=== PATIENT | female | born 1995 | race Caucasian/White ===

== ENCOUNTER 2021-06-25 13:13 | Outpatient (CLI) | payer OTHER, SELFPAY ==
--- NOTE | ~2021-06-25 | US_ITS ---
EXAMINATION: US OB <= 14 weeks fetus DATE: 06/25/2021 14:31 INDICATION: Threatened , unsure trimester TECHNIQUE: Real-time pelvic transabdominal and transvaginal ultrasound was performed. COMPARISON: None. FINDINGS: The uterus measures 11.8 x 2.7 x 6.6 cm. There is an intrauterine gestational sac. A yolk sac is identified. heart motion is identified measuring 165 beats per minute (bpm) by M-mode Do ppler. The crown rump length measures 1.5 cm , which correlates with an estimated gestational a ge of 8 weeks and 0 day(s) (+/-) 5 day(s). The right ovary measures 3.3 x 1.7 x 2.2 cm. The left ovary measures 1.9 x 1.2 x 1.1 cm. There is nor mal vascular flow in the ovaries. There is no free fluid in the pelvis. IMPRESSION: 1. Live intrauterine with an estimated gestational age of 8 weeks and 0 day(s) (+/-) 5 day( s) and an estimated delivery date of 02/04/2022. Reviewed, dictated and finalized at location A. IMPRESSION: 1. Live intrauterine with an estimated gestational age of 8 weeks and 0 day(s) (+/-) 5 day(s) and an estimated delivery date of 02/04/2022.
== END 2021-06-25 13:14 | disposition home or self-care (01) ==
LOC: ANHIMG 13:22
PROVIDERS: PCP Nurse Practitioner Family; Visit Provider Obstetrics & Gynecology
DX: O02.0 Blighted ovum and nonhydatidiform mole (principal)
CPT/HCPCS: 76801

== ENCOUNTER 2022-01-26 05:06 | Inpatient (IN) | payer OTHER, SELFPAY ==
[2022-01-26] VITALS (98 sets, daily range): BP systolic 83–142; BP diastolic 42–82; PULSE 61–148; RESP 16; TEMP 36.7–37.3; O2SAT 96–100; BMI 42.3
[2022-01-26] MEDS: AMPICILLIN 2 GM/NS 100 ML 2 GM/100 ML BAG 100 GM (05:50)
[2022-01-26] MEDS: LACTATED RINGERS 1,000 ML 125 ML IV CONT ×3 (05:52→08:01)
[2022-01-26] MEDS: AMPICILLIN 2 GM/NS 100 ML 2 GM/100 ML BAG IVPB (05:54)
[2022-01-26 06:02] LABS: Basophils Percent Auto 0.3 % (0.2-1.2); Eosinophils Absolute Auto 0.2 K/mm3 (0-0.3); Eosinophils Percent Auto 1.3 % (0-4.4); Hematocrit 38.9 % (37.0-47.0); Hemoglobin 13.3 g/dL (12.0-15.0); Immature Granulocyte Absolute 0.17 K/mm3 (0.00-0.031); Immature Granulocyte Percent A 1.1 % (0-0.5); Lymphocytes Absolute Auto 2.54 K/mm3 (0.9-3.2); Lymphocytes Percent Auto 15.9 % (18.3-44.2); Mean Corpuscular HGB Conc 34.2 g/dl (32-36); Mean Corpuscular Hemoglobin 30.8 pg (26-34); Mean Platelet Volume 11.4 fl (7.4-10.4); Monocytes Absolute Auto 1.3 K/mm3 (0.1-0.6); Monocytes Percent Auto 8.3 % (2.6-8.5); Neutrophils Absolute Auto 11.7 K/mm3 (1.3-6.7); Neutrophils Percent Auto 73.1 % (45.5-73.1); Platelet Count Result 239 k/mm3 (150-375); Red Blood Count 4.32 M/mm3 (4.2-5.4); Red Cell Distribution Width 14.3 % (11.5-14.5)
--- NOTE | 2022-01-26 06:15 | WPDANESEPP ---
Anes - Eval Pre Procedure Procedure: Labor epidural Date/Time: 01/26/22 06:15 Surgeon: Raghav Pre Op Diagnosis: Labor Patient Data Age: 26 Gender: F Height: Weight: Last Vital Signs Temp 99.1 F 01/26/22 05:25 Pulse 81 01/26/22 06:01 BP 123/60 01/26/22 06:01 Pulse Ox 100 01/26/22 06:14 Allergies Allergy/AdvReac Type Severity Reaction Status Date / Time No Known Allergies Allergy Uncoded 07/12/19 07:54 Home Medications Medication Instructions Recorded Confirmed Type PNV cmb#95-ferrous fumarate-FA 1 tablet PO DAILY 01/13/22 01/13/22 History [] albuterol sulfate [ProAir HFA] 2 puff INHALATION QID PRN 01/13/22 01/13/22 History montelukast 10 mg PO DAILY 01/13/22 01/13/22 History Laboratory Tests 01/26/22 01/26/22 01/26/22 05:49 05:49 05:49 WBC 16.0 K/mm3 H K/mm3 (4.5-10.0) RBC 4.32 M/mm3 M/mm3 (4.2-5.4) Hgb 13.3 g/dL g/dL (12.0-15.0) Hct 38.9 % % (37.0-47.0) MCV 90.0 fl fl (80-100) MCH 30.8 pg pg (26-34) MCHC 34.2 g/dl g/dl (32-36) RDW 14.3 % % (11.5-14.5) Plt Count 239 k/mm3 k/mm3 (150-375) MPV 11.4 fl H fl (7.4-10.4) Immature Gran % (Auto) 1.1 % H % (0-0.5) Neut % (Auto) 73.1 % % (45.5-73.1) Lymph % (Auto) 15.9 % L % (18.3-44.2) [place] % (Auto) 8.3 % % (2.6-8.5) Eos % (Auto) 1.3 % % (0-4.4) Baso % (Auto) 0.3 % % (0.2-1.2) Lymph # (Auto) 2.54 K/mm3 K/mm3 (0.9-3.2) [place] # (Auto) 1.3 K/mm3 H K/mm3 (0.1-0.6) Eos # (Auto) 0.2 K/mm3 K/mm3 (0-0.3) Baso # (Auto) 0.0 K/mm3 K/mm3 (0.0-0.1) Abs Immat Gran (auto) 0.17 K/mm3 H K/mm3 (0.00-0.031) Absolute Neuts (auto) 11.7 K/mm3 H K/mm3 (1.3-6.7) Absolute Nucleated RBC 0.0 K/mm3 K/mm3 (0.0-0.012) Nucleated RBC % 0.0 % % (0.0-0.2) Urine Opiates Screen Pending Urine Methadone Screen Pending Ur Barbiturates Screen Pending Ur Phencyclidine Scrn Pending Ur Amphetamine Screen Pending U Benzodiazepines Scrn Pending Urine Cocaine Screen Pending U Cannabinoids Screen Pending RPR Pending Patient hx anesthesia problems: none Family hx anesthesia problems: none Results Review: All pre-operative results and documents have been reviewed as part of the pre-operative evaluation. [facility] Past Medical History Medical History Asthma Morbid obesity and not yet delivered Family History Family History Father Blood clotting disorder Social History Social History Substance use: never Spiritual care concerns: No Exam Day of Procedure 01/26/22 06:15 Patient weight: morbidly obese Heart: regular rate and rhythm Lungs: clear to auscultation Airway: Mallampati scale class II Neurological: alert and oriented
[2022-01-26 06:20] LABS: Amphetamine Screen Urine Negative (Negative); Barbiturate Screen Urine Negative (Negative); Benzodiazepines Screen Urine Negative (Negative); Cannabinoid Screen Urine Positive (Negative); Cocaine Screen Urine Negative (Negative); Methadone Screen Urine Negative (Negative); Opiate Screen Urine Negative (Negative); Phencyclidine Screen Urine Negative (Negative)
--- NOTE | 2022-01-26 07:49 | LDADM ---
This patient, Linda Vizcarra, was admitted to Labor/Delivery/Recovery 106 on 01/26/22 at 05:06. Plans for labor, pain management and were discussed with patient. Patient/family oriented to hospital policies and general routines including ID bracelet, bed and alarms, visiting hours, pain management, procedures, bathroom and other care routines, personal items, smoking policy, room service/diet and guest tray routines, security routines, and visiting hours. Patient/Family are encouraged to report perceived risks to care and to ask questions if they do not understand what they are told or what they should do. See OBIX for further documentation.
[2022-01-26] MEDS: OXYTOCIN 30 UNITS/NS 500 ML 30 UNITS/500 ML BAG 999 UNITS IV CONT (08:01)
--- NOTE | 2022-01-26 08:09 | WPDOBADMIT ---
Obstetrics - Admit Note Admission Note: record reviewed. No pertinent additions to the history and/or any subsequent changes in the physical findings that are not consistent with the expected course of the were found. PT admitted to LD for SROM ,limited care, +GBS, plan augmentation with pitocin Additions to the history and/or subsequent changes in the physical findings follow. None.
--- NOTE | 2022-01-26 08:21 | PM.OBPNLAB ---
Pain Control Date/time seen: 01/26/22 08:21 SVE /-2, Forebag noted and AROM large amount of meconium flecked fluid, odorless, anticipate vaginal delivery
[2022-01-26] MEDS: fentaNYL CITRATE INJ (*CRX) 100 MCG/2 ML VIAL 50 MCG IV PUSH (08:33)
[2022-01-26] MEDS: AMPICILLIN 1 GM/NS 50 ML 1 GM/50 ML BAG IVPB (09:51)
[2022-01-26] MEDS: ONDANSETRON INJ 4 MG/2 ML VIAL IV PUSH (11:12)
--- NOTE | 2022-01-26 12:14 | P.PCNOB_ITS ---
OB - Delivery Note Procedure Delivery date: 01/26/22 Procedure: vaginal delivery Events: No Care (limited) Delivery augmentation: Rupture of Membranes and Pitocin Delivery monitor: External FHT, External Uterine and Internal FHT Episiotomy description: None Laceration Description: None Specimen: Yes Quantitative Blood Loss (ml): 112 Anesthesia type: Epidural Disposition: Floor [place] Baby Date of : 01/26/22 Time of : 12:01 Weeks of gestation at delivery: 40 Infant gender: Male Weight (pounds): 7 Weight (ounces): 4 presentation: vertex position: Left Occiput Anterior Placenta delivery description: Manual Removal Cord Vessel Description: 3 Vessels, Nuchal Cord, Reduced and Clamped/Cut score one minute: 9 score five minutes: 9 Narrative: baby to warmer, peds at delivery for meconium, mother and baby in stable condition
[2022-01-26] MEDS: OXYTOCIN 30 UNITS/NS 500 ML 30 UNITS/500 ML BAG 125 UNITS IV CONT (12:39)
--- NOTE | 2022-01-26 18:23 | OBPPTRN ---
Patient transferred to post room #282 via wheelchair. Support person present. Oriented to unit, room, information board, rooming in, admission packet and security measures. Patient verbalizes understanding.
[2022-01-26] MEDS: IBUPROFEN 600 MG TABLET PO (23:13)
[2022-01-27] VITALS: BP 119/62; PULSE 65; RESP 16; TEMP 36.9; O2SAT 99
[2022-01-27 04:15] VITALS: BP 112/76; PULSE 62; RESP 16; TEMP 36.6; O2SAT 100
[2022-01-27] MEDS: ACETAMINOPHEN 325 MG TABLET 650 MG PO (04:15)
[2022-01-27 04:33] LABS: Hematocrit 38.4 % (37.0-47.0); Hemoglobin 12.5 g/dL (12.0-15.0)
--- NOTE | 2022-01-27 07:44 | PM.OBPNVD ---
OB - PN: Subj Subjective Date/time seen: 01/27/22 07:44 Patient comments: no complaints, pain well controlled, incisional pain, tolerating diet and flatus present OB - PN: Obj Data Labs CBC & Chem 7: 01/27/22 04:27 Labs: Laboratory Results - last 24 hr 01/26/22 01/27/22 05:49 04:27 Hgb 12.5 Hct 38.4 Blood Type A Positive Antibody Screen Negative OB - PN A/P Plan day: 1 Plan: routine care Comments: No problems, routine care Time Spent With Patient Time: Total time spent is greater than 50% in coordination of care (as documented) at patient's floor/unit and/or counseling patient: Exam Const: General: comfortable, no acute distress and alert Resp: Effort & Inspection: normal respiratory effort Auscultation: no crackles, no rales and no rhonchi Cardio: Rate: regular rate Heart sounds: no click, no murmurs and no rubs GI: Inspection: non-distended GI Palp: No Tenderness to palpation present (GI) Auscultation: normal bowel sounds Other: Incision - CDI Extrem: General: normal to inspection, no pedal edema and no calf tenderness
[2022-01-27 08:00] VITALS: BP 112/61; PULSE 65; RESP 18; TEMP 36.5; O2SAT 100
[2022-01-27] MEDS: MULTIVIT/MIN/PREN/FOL AC/IRON TABLET 1 TAB PO (09:29)
[2022-01-27] MEDS: MONTELUKAST SODIUM 10 MG TABLET PO (09:29)
--- NOTE | 2022-01-27 11:36 | PCCCNOTE ---
Addendum entered by ZHANNA Hendricks 01/27/22 13:22: Recvd email from [facility] that states: Your information has been reviewed and assessed by a Sewing Supervisor. The information you provided met the criteria for a Child Welfare Referral to offer services/provide support to the involved family. ROGELIO naylor. Original Note: Recvd notification that pt. tested positive for THC on UDS. Baby boy's UDS was also positive for THC. Baby's umbilical cord is pending. Possible discharge for both tomorrow. Pt. reports using THC while due to appetite and sleep. Pt. denies any other drug use. Pt. denies prior DCFS involvement. [facility] Report made online #[id number]. Pt. and baby boy will live with CHARITY Martinez, who was at bedside, two daughters (ages 2 and 4), and pt's 17 year old brother who she has had custody of for the past five years. Pt. reports Juan's family is very supportive. Pt. states having all supplies for new baby. Pt. is in process of adding new baby to her WIC and is already established with [employer]. resources provided to pt. ROGELIO naylor.
[2022-01-27 12:15] LABS: Rapid Plasma Reagin Non-Reactive (NonReactive)
--- NOTE | 2022-01-27 14:06 | WPDANLDPN2 ---
Anes-Prog Note L&D Date/Time: 01/27/22 14:06 Comfortable throughout: labor and delivery Neuraxial method: epidural Epidural/Spinal procedure site: clean & non-tender Neuro status: Neuro function grossly intact. Cardiovascular status: normal Respiratory status: normal Airway patency: baseline Mental status: baseline Post-Op hydration status: normal Vital Signs: Last Vital Signs Temp 36.5 C 01/27/22 08:00 Pulse 65 01/27/22 08:00 Resp 18 01/27/22 08:00 BP 112/61 01/27/22 08:00 Pulse Ox 100 01/27/22 08:00 Pain score (VAS): 3 Post-procedural complaints: none Patient feedback: Patient satisfied with anesthetic care.
[2022-01-27] MEDS: IBUPROFEN 600 MG TABLET PO ×2 (16:09→23:56)
[2022-01-27 19:30] VITALS: BP 119/71; PULSE 75; RESP 16; TEMP 36.7; O2SAT 99
[2022-01-28] MEDS: TETANUS,DIPHTHERIA,AC PERTUSSIS ADULT (0.5 ML) BOOSTRIX IM (04:36)
--- NOTE | 2022-01-28 07:39 | PM.OBPNVD ---
OB - PN: Subj Subjective Date/time seen: 01/28/22 07:39 Patient comments: no complaints and pain well controlled baby status: doing well [place] feeding status: exclusively bottle feeding OB - PN: Obj Data Labs CBC & Chem 7: 01/27/22 04:27 Labs: Laboratory Results - last 24 hr 01/26/22 05:49 RPR Non-reactive OB - PN A/P Assessment and Plan (1) , delivered: Code(s): O80 - Encounter for full-term uncomplicated delivery Status: Acute Plan day: 2 Plan: routine care and discharge home Comments: DC instructions given. Time Spent With Patient Time: Total time spent is greater than 50% in coordination of care (as documented) at patient's floor/unit and/or counseling patient: Time with patient: less than 15 minutes Exam Narrative: NAD abdomen soft, nontender, fundus firm below the umbilicus Extremities nontender, 1+ edema
--- NOTE | 2022-01-28 07:42 | PM.DS ---
DS: Admitting Diagnosis Discharge Date 01/28/22 Admitting Diagnosis term labor DS: Discharge Diagnosis Discharge Diagnosis (1) , delivered: Code(s): O80 - Encounter for full-term uncomplicated delivery Status: Acute DS: Summary Hospital Course Hospital Course: Linda had minimal care, presented in labor at term, and had an uncomplicated vaginal delivery and course. Status at Discharge Functional status at discharge: independent ambulation Time Spent with Patient Time attestation: Total time spent providing and/or coordinating discharge services: Exam Narrative: NAD abdomen soft, appropriately tender Ext non tender, 1+ edema DS: Data Data Completed and Pending Pending studies at discharge: Pending at discharge 01/26/22 12:59 Surgical [PTH] Routine Labs on day of discharge: Labs from last 24 hours 01/26/22 05:49 RPR Non-reactive Discharge Plan Discharge Attending physician on discharge: Kalpana Gibbs Discharging Clinician: Kalpana Gibbs Anticipated Discharge Date/Time: 01/28/22 16:00 Patient Disposition: Home, Self-Care Activity: pelvic rest Diet: regular Patient Instructions: Antibiotic Form Stand Alone Forms: General Discharge Information Follow-up/Referrals: Pam Avilez MD [Physician] - 4 Weeks Discharge Medications: Continued montelukast 10 mg Tablet 10 mg PO DAILY RF: 0 albuterol sulfate [ProAir HFA] 90 mcg/actuation Hfa Aerosol Inhaler 2 puff INHALATION QID PRN (Reason: Wheezing) RF: 0 PNV cmb#95-ferrous fumarate-FA [] 28 mg iron- 800 mcg Tablet 1 tablet PO DAILY RF: 0 Date of admission: 01/26/22 05:06 Primary Care Provider: Yvonne,Candis Fitzgerald Admitting Provider: Pam Avilez Attending physician on admission: Pam Avilez Condition: Stable
[2022-01-28 08:05] VITALS: BP 122/74; PULSE 72; RESP 18; TEMP 36.9; O2SAT 100
[2022-01-28] MEDS: MONTELUKAST SODIUM 10 MG TABLET PO (08:37)
[2022-01-28] MEDS: MULTIVIT/MIN/PREN/FOL AC/IRON TABLET 1 TAB PO (08:37)
[2022-01-28] MEDS: IBUPROFEN 600 MG TABLET PO (08:37)
--- NOTE | 2022-01-28 10:05 | PC.NURSE ---
Patient instructed on viewing the discharge video Mother & Baby Care, The First Two Weeks . Patient was given the opportunity and encouraged to ask questions. Patient verbalized understanding of information shared and has been given the mother/baby guide for home reference.
--- NOTE | 2022-01-28 11:21 | PC.NURSE ---
1020 - Mother led the conversation with her experience and plan to feed her so far and her ability to continue to feed infant formula and may breastfeed at home. Mother last put to breast 01/27 at 0400 and states latching hurt her nipples. RN attempted to see patient twice during the shift and patient was not in her room, or in the OB unit. has had adequate formula feedings in the last 24 hours meets the outcomes for weight, output and jaundice at this time. Mother states she is confident to continue feeding her , has other children at home, and denies any additional assistance or education at this time. Reinforced understanding of milk production, community resources, and when to call a provider using the resource of the mom and baby guide. Mother voiced understanding of the education shared. Reported to the primary RN.
[2022-01-29 11:14] VITALS: BP 125/72; PULSE 62; RESP 20; TEMP 36.9; O2SAT 100
== END 2022-01-28 10:45 | disposition home or self-care (01) | DRG 560 ==
LOC: ANHLDR 05:35 → ANHOB2 01-28 07:42 → ANHLDR 01-29 07:54 → ANHOB2 01-29 07:54
PROVIDERS: Advanced Practice Midwife; Admitting Provider Obstetrics & Gynecology; PCP Nurse Practitioner Family; Visit Provider Obstetrics & Gynecology
DX: O99.824 Streptococcus B carrier state complicating childbirth (principal); Z37.0 Single live birth; Z3A.40 40 weeks gestation of pregnancy; O77.0 Labor and delivery complicated by meconium in amniotic fluid; O69.81X0 Labor and delivery complicated by cord around neck, without compression, not applicable or unspecified
CPT/HCPCS: 36415; 80307; 84112; 85014; 85018; 85025; 86592; 86850; 86900; 86901; 88307; 90715; A9270; J0290; J2405; J2590; J2795; J3010; J7120

== ENCOUNTER 2024-09-30 12:14 | Outpatient (RCR) | payer BC, SELFPAY ==
[2024-09-07 16:34] VITALS: BP 111/60; PULSE 99
--- NOTE | ~2024-09-30 | US_ITS ---
LIMITED OBSTETRIC ULTRASOUND/BIOPHYSICAL PROFILE Ordering provider: Rhoda Deng CNM History: . Elevated BMI . Comparison: None. FINDINGS: MATERNAL CERVIX: Not visualized. PRESENTATION: Vertex. Longitudinal lie PLACENTAL LOCATION: Anterior. No previa. HEART RATE: 123 bpm (normal is between 110 to 160 bpm). AMNIOTIC FLUID INDEX: Largest vertical pocket is 7.9 cm. OTHER: Maternal ovaries not visualized. SCORE: breathing movements: 2 movements: 2 tone: 2 Amniotic fluid volume: 2 Total: 8 IMPRESSION: Normal biophysical profile. Reviewed, dictated and finalized at location A. TY SEALER IMPRESSION: Normal biophysical profile.
[2024-09-30 13:27] VITALS: BP 116/64; PULSE 82
== END 2024-10-22 16:13 | disposition home or self-care (01) ==
LOC: ANHOBOP 12:14
PROVIDERS: PCP Nurse Practitioner Family; Visit Provider Advanced Practice Midwife
DX: O99.213 Obesity complicating pregnancy, third trimester (principal); Z3A.34 34 weeks gestation of pregnancy
CPT/HCPCS: 59025; 76819

== ENCOUNTER 2024-10-07 05:05 | Inpatient (IN) | payer BC, SELFPAY ==
[2024-10-07] VITALS (116 sets, daily range): BP systolic 77–137; BP diastolic 39–90; PULSE 63–201; RESP 16–18; TEMP 36.1–36.8; O2SAT 95–100
[2024-10-07 05:44] LABS: Basophils Percent Auto 0.3 % (0.2-1.2); Eosinophils Absolute Auto 0.1 K/mm3 (0-0.3); Eosinophils Percent Auto 0.9 % (0-4.4); Hematocrit 37.3 % (37.0-47.0); Hemoglobin 12.9 g/dL (12.0-15.0); Immature Granulocyte Absolute 0.12 K/mm3 (0.00-0.031); Mean Corpuscular HGB Conc 34.6 g/dl (32-36); Mean Corpuscular Hemoglobin 32.8 pg (26-34); Mean Corpuscular Volume 94.9 fl (80-100); Mean Platelet Volume 10.6 fl (7.4-10.4); Monocytes Absolute Auto 0.7 K/mm3 (0.1-0.6); Neutrophils Absolute Auto 8.2 K/mm3 (1.3-6.7); Neutrophils Percent Auto 67.8 % (45.5-73.1); Platelet Count Result 320 k/mm3 (150-375); Red Blood Count 3.93 M/mm3 (4.2-5.4); Red Cell Distribution Width 15.5 % (11.5-14.5); White Blood Count 12.1 K/mm3 (4.5-10.0)
[2024-10-07] MEDS: OXYTOCIN 30 UNITS/NS 500 ML 30 UNITS/500 ML BAG IV CONT (06:00)
[2024-10-07] MEDS: AMPICILLIN 2 GM/NS 100 ML 2 GM/100 ML BAG IVPB (06:00)
[2024-10-07] MEDS: LACTATED RINGERS 1,000 ML 125 ML IV CONT ×2 (06:02→07:29)
[2024-10-07 06:33] LABS: Rapid Plasma Reagin Non-Reactive (NonReactive)
[2024-10-07 06:37] LABS: HIV 1/2 Ab P24 Ag Result Negative (Negative)
--- NOTE | 2024-10-07 06:45 | P.PNAN_ITS ---
Anes - Eval Pre Procedure Procedure: labor epidural Date/Time: 10/07/24 06:45 Surgeon: sonam Preop Diagnosis: pain during labor Pre Op Diagnosis: IOL Patient Data Age: 29 Gender: F Height: Weight: Last Vital Signs Pulse 75 10/07/24 06:30 BP 115/65 10/07/24 06:30 Allergies Allergy/AdvReac Type Severity Reaction Status Date / Time No Known Allergies Allergy Verified 09/23/24 15:19 Home Medications ?Medication ?Instructions ?Recorded ?Confirmed ?Type albuterol sulfate 90 mcg/actuation 2 puff inhalation QID PRN Wheezing 01/13/22 09/23/24 History aerosol inhaler (ProAir HFA) vit no.95-ferrous 1 tablet PO DAILY 01/13/22 09/23/24 History fumarate 28 mg-folic acid 800 mcg tablet () Laboratory Tests 10/07/24 05:38 WBC 12.1 H K/mm3 (4.5-10.0) RBC 3.93 L M/mm3 (4.2-5.4) Hgb 12.9 g/dL (12.0-15.0) Hct 37.3 % (37.0-47.0) MCV 94.9 fl (80-100) MCH 32.8 pg (26-34) MCHC 34.6 g/dl (32-36) RDW 15.5 H % (11.5-14.5) Plt Count 320 k/mm3 (150-375) MPV 10.6 H fl (7.4-10.4) Immature Gran % (Auto) 1.0 H % (0-0.5) Neut % (Auto) 67.8 % (45.5-73.1) Lymph % (Auto) 24.0 % (18.3-44.2) [place] % (Auto) 6.0 % (2.6-8.5) Eos % (Auto) 0.9 % (0-4.4) Baso % (Auto) 0.3 % (0.2-1.2) Lymph # (Auto) 2.90 K/mm3 (0.9-3.2) [place] # (Auto) 0.7 H K/mm3 (0.1-0.6) Eos # (Auto) 0.1 K/mm3 (0-0.3) Baso # (Auto) 0.0 K/mm3 (0.0-0.1) Abs Immat Gran (auto) 0.12 H K/mm3 (0.00-0.031) Absolute Neuts (auto) 8.2 H K/mm3 (1.3-6.7) Absolute Nucleated RBC 0.000 K/mm3 (0.0-0.012) Nucleated RBC % 0.0 % (0.0-0.2) RPR Non-reactive (NonReactive) HIV 1&2 Ab/P24 Ag 4thGn Negative (Negative) Blood Type A Positive Antibody Screen Negative Patient hx anesthesia problems: none Family hx anesthesia problems: none Results Review: All pre-operative results and documents have been reviewed as part of the pre- operative evaluation. [facility] Past Medical History Medical History Asthma Morbid obesity and not yet delivered Family History Family History Father Blood clotting disorder Social History Social History Years smoked: 10 Smoking status: Current every day smoker Tobacco type: cigarettes Second hand tobacco smoke exposure: No Substance use: never Spiritual care concerns: No Exam Day of Procedure 10/07/24 06:45
--- NOTE | 2024-10-07 07:52 | WPDOBADMIT ---
Obstetrics - Admit Note Admission Note: record reviewed. No pertinent additions to the history and/or any subsequent changes in the physical findings that are not consistent with the expected course of the were found. Additions to the history and/or subsequent changes in the physical findings follow. admit for IOL, polyhydramnios, SVE /-2 arom large amount of clear, odorless fluid, anticipate vaginal delivery
[2024-10-07] MEDS: AMPICILLIN 1 GM/NS 50 ML 1 GM/50 ML BAG IVPB (10:06)
--- NOTE | 2024-10-07 12:30 | PM.OBPRVD ---
OB - Vaginal Delivery Note Procedure Delivery date: 10/07/24 Events: Other (polyhydramnios) Intrapartal Events: Decelerations Induction method: AROM and Per Pitocin Protocol Delivery monitor: External FHT and External Uterine Route of delivery: Episiotomy description: None Laceration Description: None Specimen: No Quantitative Blood Loss (ml): 100 Anesthesia type: Epidural Disposition: Floor Complications: No immediate complications Baby Date of : 10/07/24 Time of : 12:20 Gestational Age by Date: 39 gender: Female presentation: vertex position: Right Occiput Anterior Placenta delivery description: Spontaneous Cord Vessel Description: 3 Vessels, Clamped/Cut and Delayed Cord Clamping score one minute: 8 score five minutes: 9
[2024-10-07] MEDS: OXYTOCIN 30 UNITS/NS 500 ML 30 UNITS/500 ML BAG 125 UNITS IV CONT (13:01)
[2024-10-08] MEDS: ACETAMINOPHEN 325 MG TABLET 650 MG PO
[2024-10-08 04:00] VITALS: BP 132/85; PULSE 88; RESP 18; TEMP 36.6; O2SAT 99
[2024-10-08] MEDS: IBUPROFEN 600 MG TABLET PO (04:10)
[2024-10-08 04:49] LABS: Hematocrit 38.1 % (37.0-47.0); Hemoglobin 12.5 g/dL (12.0-15.0)
--- NOTE | 2024-10-08 06:50 | WPDANLDPN2 ---
Anes-Prog Note L&D Date/Time: 10/08/24 06:50 Comfortable throughout: labor and delivery Neuraxial method: epidural Epidural/Spinal procedure site: clean & non-tender Neuro status: Neuro function grossly intact. Cardiovascular status: normal Respiratory status: normal Airway patency: baseline Mental status: baseline Post-Op hydration status: normal Vital Signs: Last Vital Signs Temp 36.6 C 10/08/24 04:00 Pulse 88 10/08/24 04:00 Resp 18 10/08/24 04:00 BP 132/85 10/08/24 04:00 Pulse Ox 99 10/08/24 04:00 O2 Del Method Room Air 10/07/24 19:40 Pain score (VAS): 1 Post-procedural complaints: none Patient feedback: Patient satisfied with anesthetic care.
--- NOTE | 2024-10-08 07:15 | PM.OBPRVD ---
OB - Vaginal Delivery Note Procedure Delivery date: 10/08/24 Events: Other (polyhydramnios) Intrapartal Events: Decelerations Laceration Description: None Anesthesia type: Epidural Baby Date of : 10/07/24 Time of : 12:20 Gestational Age by Date: 39 Infant gender: Female presentation: vertex position: Right Occiput Anterior Placenta delivery description: Spontaneous Cord Vessel Description: 3 Vessels, Clamped/Cut and Delayed Cord Clamping score one minute: 8 score five minutes: 9
--- NOTE | 2024-10-08 07:16 | PM.OBDSVD ---
DS: Admitting Diagnosis Discharge Date October 08, 2020 Admitting Diagnosis term DS: Discharge Diagnosis Discharge Diagnosis (1) , delivered: Code(s): O80 - Encounter for full-term uncomplicated delivery Status: Acute OB - DS: Summary OB Procedures : None OB Procedures Intrapartum: Spontaneous Vag Delivery OB Procedures: : None Peripartum Data Laceration Description: None Episiotomy description: None Time Spent with Patient Time attestation: Total time spent providing and/or coordinating discharge services: DS: Data Data Completed and Pending Labs on day of discharge: Labs from last 24 hours 10/08/24 03:55 Hgb 12.5 Hct 38.1 Discharge Plan Discharge Consulting providers: Cole Avilez Discharging Clinician: Cole Avilez Activity: pelvic rest Diet: regular Patient Language: [place] Discharge Medications: No Action albuterol sulfate [ProAir HFA] 90 mcg/actuation Hfa Aerosol Inhaler 2 puff INHALATION QID PRN (Reason: Wheezing) PNV cmb#95-ferrous fumarate-FA [] 28 mg iron- 800 mcg Tablet 1 tablet PO DAILY Date of admission: 10/07/24 05:05 Primary Care Provider: Diane,Candis Fitzgerald Admitting Provider: Cole Avilez Attending physician on admission: Rhoda Deng
[2024-10-08 08:15] VITALS: BP 102/71; PULSE 68; RESP 16; TEMP 36.2
--- OUTSIDE RECORDS SUMMARY | 2024-10-14 10:22 | XMS_ITS | Encounter Summary ---
Author Organization [facility] Address [address] [place] [address] Phone Care Team Providers Care Pulling Unit Operator Name Role Phone Cole Avilez MD Unavailable [phone] No, Physician Primary Care Provider [phone] Reason for Visit * OBGYN (Routine) - Closed Specialty Diagnoses / Procedures Referred By Contac t Referred To Contact Maternal and Medicine Diagnoses COM U/S PRIOR Procedures OB CO-MANAGED [facility] Obstetrics and Gynecology [address] [place] [address] Health 7th Floor [address] [place] [address] Phone: tel: fax: [facility] Physicians [facility] Obstetrics and Gynecology [address] [place] [address] [address], [place] [address] Phone: tel: fax: Referral ID Status Reason Start Date Expiration Date Visits Re quested Visits Authorized [id number] Closed 06/03/2019 12/12/2020 1 1 Encounter Details Date Type Department Care Team (Late st Contact Info) Description 06/03/2019 12:15 PM CDT Office Visit [facility] Physicians [facility] Obstetrics and Gynecology [address] [facility] [address] [place] [address] Jose Antonio Rasheed MD [address] [place] [phone] [place] [address] Poor growth affecting management of mother in third trimester, single or unspecified fetus (Primary Dx) Social History Tobacco Use Types Packs/Day Years Used Date Smoking Tobacco: Heavy Smoker Cigarettes 0.5 6 Smokeless Tobacco: Never Comments:Smoking History Pac ks/day: 7 Cigarettes Alcohol Use Standard Drinks/Week Comments No 0 (1 standard drink = 0.6 oz pur e alcohol) Comments Yes Sex and Gender Information Value Date Recorded Sex Assigned at Not on file Legal Sex Female 1:52 PM CDT Gender Identity Not on file Sexual Orientation Not on file documented as of this encounter Last Filed Vital Signs Vital Sign Reading Time Taken Comments Blood Pressure 120/70 06/03/2019 11:26 AM CDT Pulse - - Temperature - - Respiratory Rate - - Oxygen Saturation - - Inhaled Oxygen Concentration - - Weight 91.3 kg (201 lb 4.5 oz) 06/03/2019 11:26 AM CDT Height 157.5 cm (5' 2 ) 06/03/2019 11:26 AM CDT Body Mass Index 36.81 06/03/2019 11:26 AM CDT documented in this encounter Progress Notes * Jose Antonio Rasheed MD - 06/03/2019 12:15 PM CDT Maternal- Medicine Consultation Dear Dr. Avilez, I had the pleasure of seeing your patient, Linda Vizcarra, [facility] at [place], [place] on 06/03/2019. As you are aware, Linda is a 23 y.o. currently at 31w1d weeks gestation whose is complicated by suspected intrauterine growth restriction. Today, Linda denies any acute medical or obstetrical complaints. She denies any contractions, vaginal bleeding, and leakage of fluid. She reports good movement. For information on her medical histories, please refer to previous consultation letters. During today's consultation, Linda underwent a growth ultrasonographic examination that demonstrated a viable fetus to be in cephalic presentation with an estimated weight at the 52nd percentile. BPP 05/19. Umbilical artery Doppler velocimetry demonstrated a normal PI. The amniotic fluid volume was normal. These findings were reviewed in extensive detail with Linda today. Given that Linda has not had 2subsequent normal growth ultrasounds since her ultrasound of growth restriction was performed, I have recommended that she continue the surveillance twice weekly in your ofice. I would liketo see Linda in return consultation with a repeat growth ultrasonographic examination in 3-4 weeks' time. If, at that time, the growth is again in the normal range, testing can then be discontinued. The patient verbalized understanding and is in agreement. In the interim, Linda should continue her routine care with you. Should you have any further questions or concerns, please do not hesitate to call me. I have spent 30 minutes of clinical time for this patient, with > 50% of the time being devoted to history taking, counseling and coordination of care. Sincerely, Jose Antonio Rasheed MD, FACOG Upper Inspector Division of Maternal- Medicine Department of Obstetrics and Gynecology [facility] documented in this encounter Plan of Treatment Not on file documented as of this encounter Visit Diagnoses Diagnosis Poor growth affecting management of mother in third trimester, single or unspecified fetus- Primary documented in this encounter Care Teams Pulling Unit Operator Relationship Specialty Start Date End Date No, Physician PCP - General 06/03/19 Cole Avilez MD [address] [place] [address] Referring Physician Obstetrics and Gynecology 04/19/19 documented as of this encounter
--- OUTSIDE RECORDS SUMMARY | 2024-10-14 10:22 | XMS_ITS | Clinical Summary ---
Author Organization [facility] Address [address] [place] [address] Care Team Providers Care Auto Glass Installer Name Role Phone Cole Avilez MD Unavailable [phone] No, Physician Primary Care Provider [phone] Allergies No known active allergies Medications no.75-rkbm-GX-d adams (OUTREACH CLINICIAN-PNV-DHA) 28 mg iron- 1 mg-200 mg capsule take 1 capsule by oral route every day 30 11 7 Active cholecalciferol (VITAMIN D3) 5,000 unit tablet take 1 tablet by oral route every day 30 5 7 Active Additional Information Patient not taking.Reported on 09/23/2017 norgestimate-et hinyl estradiol (MONONESSA, 28,) 0.25-35 mg-mcg per tablet Take 1 tablet by mouth daily. 28 tablet 12 7 Active VENTOLIN HFA 90 mcg/actuation inhaler INHALE 2 PUFFS BY MOUTH EVERY 6 HOURS NEEDED FOR WHEEZING 18 g 8 Active Active Problems Problem Noted Date Diagnosed Date Asthma affecting in second trimester 0 04/15/2019 Overview (04/15/2019): Patient is doing well. She has a MDI and denies recent exacerbation. Supervision of high-risk , unspecified trimester 03/30/2019 Overview (03/30/2019): Co-management vs. [] Full MFM Care Referring Provider: Raghav [x] Dating Criteria: LMP [x] Labs: Rh [ A+ ], Ab [ neg ], Rubella [ imm ], HIV [ neg ], HepBSAg [ neg ], RPR [ NR ] [x] Genetic Screening: quad screen negative [] Hgb electrophoresis (if indicated) [x] CBC: 12.9/39.3/plt 247 [x] GC/CT/trich: neg/neg/neg [] UCx: [x] Pap: 02/09/19 WNL [] PNBHS referral (if indicated) 2nd Tri Labs: [] Anatomy ultrasound [] CBC [] 1hr gtt [] Flu Shot (Jun-Sep) [] Tdap (27-36wks) [] Rhogam (if Rh neg): 3rd Tri Labs: [] CBC/HIV/RPR [] GBS [] GC/CT (if indicated) Counselling [] MOD: [] MOC: [] Method of feeding: [] PP Depression Discussed Poor growth affecting management of mother in third trimester 03/30/2019 Overview (06/03/2019): EFW at 28th percentile if ROSI of 08/04 is used determined by 15 US. LMP of 10/26/18 is uncertain ( patient reports she guessed the date). 04/11: 28th percentile 05/02: 7th percentile 06/03: 52nd percentile Drug abuse during ([facility]) 03/30/2019 Overview (03/30/2019): UDS positive for THC per primary OB Resolved Problems Problem Noted Date Diagnosed Date Resolved Date GBS (group B Streptococcus c arrier), +RV culture, currently 07/12/2017 03/30/2019 Immunizations Name Administration Dates Next Due Tdap 05/15/2017 Medical History Medical History Date Comments Airway hyperreactivity Asthma; C omments: JRB 12/12/2016 - Hx Other Medical stomach, bowel, or gallbladder; Comments: JRB 12/12/2016 - Family History Medical History Relation Name Comments Asthma Father Asthma; Blood Clot Father blood clots; Thyroid disease Father Thyroid dise ase; Diabetes Maternal Grandmother Diabete s mellitus; Cervical cancer Paternal Grandmother Canc er, cervical; Other Paternal Grandmother breast problems; Relation Name Status Comments Father Maternal Grandmother Paternal Grandmother Social History Tobacco Use Types Packs/Day Years Used Date Smoking Tobacco: Heavy Smoker Cigarettes 0.5 6 Smokeless Tobacco: Never Comments:Smoking History Pac ks/day: 7 Cigarettes Alcohol Use Standard Drinks/Week Comments No 0 (1 standard drink = 0.6 oz pur e alcohol) Personal Safety Answer Date Recorded Getting School Help Needed Not on file 12/26 Comments No Sex and Gender Information Value Date Recorded Sex Assigned at Not on file Legal Sex Female 1:52 PM CDT Gender Identity Not on file Sexual Orientation Not on file Obstetrics History Para Term AB IAB SAB Ectopic Multiple Livin g Live Births 2 1 1 1 1 Date Outcome GA Total Labor Labor/2nd/3rd Weight Sex Type Anes PTL Jackie A1 A5 Name Clin 07/13 Term 39w 1d 2.466 kg (5 lb 7 oz) F Vag-S pont Epidura l Living Last Filed Vital Signs Vital Sign Reading [...] Mass Index 36.81 06/03/2019 11:26 AM CDT Plan of Treatment Not on file Insurance Care Teams Auto Glass Installer Relationship Specialty Start Date End Date No, Physician PCP - General 06/03/19 Cole Avilez MD [address] [place] [address] Referring Physician Obstetrics and Gynecology 04/19/19
--- OUTSIDE RECORDS SUMMARY | 2024-10-14 10:22 | XMS_ITS | Referral Summary ---
Author Organization [facility] Address [address] [place] [address] Care Team Providers Care Pattern Hanger Name Role Phone Cole Avilez MD Unavailable [phone], Physician Primary Care Provider [phone] Allergies No known active allergies Medications no.36-hxgu-OB-d adams (MIXOLOGIST-PNV-DHA) 28 mg iron- 1 mg-200 mg capsule [...] 52nd percentile Drug abuse during (CMS/[facility]) 03/30/2019 Overview (03/30/2019): UDS positive for THC per primary OB Resolved Problems Problem Noted Date Diagnosed Date Resolved Date GBS (group B Streptococcus c arrier), +RV culture, currently 07/12/2017 03/30/2019 Immunizations Name Administration Dates Next Due Tdap 05/15/2017 Social History Tobacco Use Types Packs/Day Years [...] on file Sexual Orientation Not on file Last Filed Vital Signs Vital Sign Reading [...] Plan of Treatment Not on file Insurance [facility] Care Teams Pattern Hanger Relationship Specialty Start Date End Date No, Physician PCP - General 06/03/19 Cole Avilez MD [address] [place] [address] Referring Physician Obstetrics and Gynecology 04/19/19
--- OUTSIDE RECORDS SUMMARY | 2024-10-14 10:22 | XMS_ITS | Encounter Summary ---
Author Organization [facility] Address [address] [place] [address] Phone Care Team Providers Care Bench Grinder Name Role Phone Cole Avilez MD Unavailable [phone] No, Physician Primary Care Provider [phone] Reason for Visit * Diagnostic Imaging (Routine) - Closed Specialty Diagnoses / Procedures Referred By Contac t Referred To Contact Diagnoses Encounter for ultrasound to assess growth Procedures US OB Follow Up Cole Avilez MD Phone: tel: fax: [facility] (All Locations) Referral ID Status Reason Start Date Expiration Date Visits Re quested Visits Authorized [id number] Closed 05/04/2019 11/12/2020 1 1 Encounter Details Date Type Department Care Team (Latest Contact Info) Description 06/03/2019 11:15 AM CDT Ancillary Procedure [facility] Obstetrics and Gynecology [address] [place] [address] [place] [address] Encounter for ultrasound to assess growth Social History Tobacco Use Types Packs/Day Years [...] on file documented as of this encounter Plan of Treatment Not on file documented as of this encounter Procedures Procedure Name Priority Date/Time Associated Diagnosis Comments US OB FOLLOW UP Schedule Routine, Read Routine (OP Routine) 06/03/2019 11:23 AM CDT Encounter for ultrasound to assess growth documented in this encounter Results * US OB Follow Up (06/03/2019 11:23 AM CDT) Placenta Details posterior, Previa-no, no placental masses VIEWPOINT Estimated Weight 1,794 g&grams VIEWPOINT Presentation Vertex VIEWPOINT Fetus# Fetus1 VIEWPOINT Anatomical Region Laterality Modality Abdomen N/A Ultrasound 06/03/2019 11:3 4 AM CDT us Cole Avilez MD IMG OB US PROCEDURES Final Re sult documented in this encounter Visit Diagnoses Diagnosis Encounter for ultrasound to assess growth documented in this encounter Care Teams Bench Grinder Relationship Specialty Start Date End Date No, Physician PCP - General 06/03/19 Cole Avilez MD [address] [place] [address] Referring Physician Obstetrics and Gynecology 04/19/19 documented as of this encounter
--- OUTSIDE RECORDS SUMMARY | 2024-10-14 10:23 | XMS_ITS | Encounter Summary ---
Author Organization [facility] Address [address] [place] [address] Phone Care Team Providers Care Machine Chocolate Molder Name Role Phone No, Physician Primary Care Provider [phone] Reason for Visit * Consultation (Routine) - Closed Specialty Diagnoses / Procedures Referred By Contac t Referred To Contact Maternal and Medicine Diagnoses affected by growth restriction Cole Avilez MD Phone: tel: fax: [facility] (All Locations) Referral ID Status Reason Start Date Expiration Date V isits Requested Visits Authorized [id number] Closed Specialty Services Required 03/25/2019 10/03/2020 1 1 Encounter Details Date Type Department Care Team (Late st Contact Info) Description 04/11/2019 1:00 PM CDT Office Visit [facility] Physicians [facility] Obstetrics and Gynecology [address] [place] [address] Ricarda Beverly MD [address] [facility] [phone] [place] [address] affected by growth restriction Social History Tobacco Use Types Packs/Day Years [...] on file documented as of this encounter Progress Notes * Ricarda Beverly MD - 04/11/2019 1:00 PM CDT Maternal Medicine Consult Note Reason for Consult: Suspected IUGR Requesting Provider: Cole Avilez MD Dear Dr. Avilez, We had the pleasure of seeing your patient Linad Vizcarra in our office today. As you know, she berta 23 y.o. at 23w6d who presents for consultation secondary to suspected IUGR. I have reviewed how Ms Gomez's ROSI was derived and she tells me that her LMP is uncertain and that she guessed at the date. I have reviewed her earliest US and have decided to re-date her based on the information obtained today. While the ROSI only changed 2 days it is the most accurate. Today she is doing well, she reports movement normal, no bleeding, no contractions and no leaking. Patient Active Problem List Diagnosis Code ??? Supervision of high-risk , unspecified trimester O09.90 ??? Poor growth affecting management of mother in second trimester O36.5920 ??? Drug abuse during ([facility]) O99.320, F19.10 Past Medical History: Diagnosis Date ??? Airway hyperreactivity Asthma; Comments: OLEGARIO 12/12/2016 - ??? HX OTHER MEDICAL stomach, bowel, or gallbladder; Comments: OLEGARIO 12/12/2016 - No past surgical history on file. Past Gynecologic History: Patient's last menstrual period was 10/26/2018. but she reports she guess the date. Menses: regular, Prior STIs: none. Her last pap smear was normal. Prior control methods: nothing. She has no history of infertility, ART treatment, gynecologic surgery, or breast cancer. She has no history of blood transfusions. OB History Para Term AB Living 2 1 1 1 SAB TAB Ectopic Multiple Live Births 1 # Outcome Date GA Lbr Anselmo/2nd Weight Sex Delivery Anes PTL Lv 2 Current 1 Term 07/13/17 39w1d 2.466 kg (5 lb 7 oz) F Vag-Spont EPI HERBERT Medications: Scheduled Meds: Continuous Infusions: No current facility-administered medications for this visit. PRN Meds:. Family History: Family History Problem Relation Age of Onset ??? Asthma Father Asthma; ??? Thyroid disease Father Thyroid disease; ??? Blood Clot Father blood clots; ??? Diabetes Maternal Grandmother Diabetes mellitus; ??? Cervical cancer Paternal Grandmother Cancer, cervical; ??? Other Paternal Grandmother breast problems; Specifically, she denies a family history of defects including spina bifida, congenital heartdefects, limb defects, or kidney defects. She denies a family history of genetic abnormalities including Down Syndrome, cognitive delays, or learning disabilities including autism spectrum disorders.She denies a family history of inherited disorders including cystic fibrosis, thalassemia, sickle cell disease, or muscular dystrophy. No Known Allergies Social History Socioeconomic History ??? Marital status: Unknown Spouse name: Not on file ??? Number of children: Not on file ??? Years of education: Not on file ??? Highest education level: Not on file Tobacco Use ??? Smoking status: Heavy Tobacco Smoker Packs/day: 0.50 Years: 6.00 Pack years: 3.00 ??? Smokeless tobacco: Never Used ??? Tobacco comment: Smoking History Packs/day: 7 Cigarettes Substance and Sexual Activity ??? Alcohol use: No ??? Drug use: No ??? Sexual activity: Yes Dating: Patient's last menstrual period was 10/26/2018. uncertain > ROSI 08/02/19 2nd trimester ultrasound 15 weeks > ROSI 08/04/19 Review of Systems Review of systems per HPI and otherwise all systems are negative Physical Exam Vitals LMP 10/26/2018 General: Healthy, alert, active, cooperative, and in no distress The rest of the exam is deferred secondary to the consultative nature of this visit. Heart Rate: wnl Labs: Laboratory Results dated 02/10/19 Blood type: A+ Antibody screen: Negative GCCT: Negative HCT: 39.3 Platelets: 247 Rubella: Immune RPR: Negative HBsAg: Negative HIV: Negative Pap: normal Aneuploidy screening: Not reviewed SMA/CF screening: not reviewed Outside Imaging: Ultrasound: Second/third trimester findings: EFW at 5th% by ROSI of 08/02/19 Ultrasound at our [facility]: Ultrasound 04/11/2019: 23w6d EFW 577 grams (28th%), breech presentation, [place] wnl, placenta posterior,fundal Assessment: Ms. Linda Vizcarra is a kasie 23 y.o. at 23w6d here today for a consult regarding the followin. Suspected IUGR. After reviewed the dating by LMP and patient's uncertainty of the date I have reassigned her ROSI based on the 15 week US despite there only being a 2 day difference. The EFW obtained today is not concerning but I would like to repeat the US in 3 weeks to ensure the biometry continues to plot at or above the 10th percentile. 2. Asthma Asthma may worsen, improve, or stay the same during , and that management is similar in women compared to non- women. Pulmonary symptoms in the third trimester may be difficult to distinguish between asthma exacerbation and dyspnea of . Optimal control prior to is recommended, and Ms. Gomez's reports rare inhaler use at this time. Typically, well-controlled asthma will not impact outcomes. GERD can exacerbate asthma in and control of these symptoms are important. Thank you for involving the Maternal- Medicine practice in the care of this kasie patient. Inthe interim, Ms. Vizcarra should continue her routine care with you. We would like to see Ms. Vizcarra again in approximately 3 weeks' time. Should you have any further questions or concerns, please do not hesitate to contact our office. I have spent 30 minutes of clinical time for this patient, with > 50% of the time being devoted to history taking, counseling and coordination of care. Ricarda Beverly MD Russet Repairer Division of Maternal Medicine documented in this encounter Plan of Treatment Not on file documented as of this encounter Visit Diagnoses Diagnosis affected by growth restriction documented in this encounter Orders Outpatient Referral Count Last Ordered Date Fir st Ordered Date AMB REFERRAL TO MATERNAL AND MEDICINE 1 04/11/2019 documented in this encounter Care Teams Machine Chocolate Molder Relationship Specialty Start Date End Date No, Physician PCP - General 07/10/17 06/02/19 documented as of this encounter
--- OUTSIDE RECORDS SUMMARY | 2024-10-14 10:23 | XMS_ITS | Encounter Summary ---
Author Organization [facility] Address [address] [place] [address] Phone Care Team Providers Care Chisel Grinder Name Role Phone No, Physician Primary Care Provider [phone] Reason for Visit * Diagnostic Imaging (Routine) - Closed Specialty Diagnoses / Procedures Referred By Contac t Referred To Contact Diagnoses affected by growth restriction Procedures US OB Detail Anatomy Single Or First Gestation Cole Avilez MD Phone: tel: fax: [facility] (All Locations) Referral ID Status Reason Start Date Expiration Date Visits Re quested Visits Authorized [id number] Closed 03/25/2019 10/03/2020 1 1 Encounter Details Date Type Department Care Team (Latest Contact Info) Description 04/11/2019 11:00 AM CDT Ancillary Procedure [facility] Obstetrics and Gynecology [address] [place] [phone] affected by growth restriction Social History Tobacco [...] Priority Date/Time Associated Diagnosis Comments US OB DETAIL ANATOMY SINGLE OR FIRST GESTATION Schedule Routine, Read Routine (OP Routine) 04/11/2019 11:12 AM CDT affected by growth restriction documented in this encounter Results * US OB Detail Anatomy Single Or First Gestation (04/11/2019 11:12 AM CDT) Placenta Details posterior, fundal, Previa-no, no placental masses VIEWPOINT Estimated Weight 577 g&grams VIEWPOINT Presentation Breech VIEWPOINT Fetus# Fetus1 VIEWPOINT Anatomical Region Laterality Modality Body N/A Ultrasound 04/11/2019 12:1 4 PM CDT us Cole Avilez MD IMG OB US PROCEDURES Final Re sult documented in this encounter Visit Diagnoses Diagnosis affected by growth restriction documented in this encounter Care Teams Chisel Grinder Relationship Specialty Start Date End Date No, Physician PCP - General 07/10/17 06/02/19 documented as of this encounter
--- OUTSIDE RECORDS SUMMARY | 2024-10-14 10:23 | XMS_ITS | Encounter Summary ---
Author Organization [facility] Address [address] [place] [address] Phone Care Team Providers Care Mechanical Applications Engineer Name Role Phone No, Physician Primary Care Provider [phone] Cole Avilez MD Unavailable [phone] Reason for Visit * Diagnostic Imaging (Routine) - Closed Specialty Diagnoses / Procedures Referred By Contac t Referred To Contact Diagnoses Encounter for ultrasound to assess growth Procedures US OB Follow Up Cole Avilez MD Phone: tel: fax: [facility] (All Locations) Referral ID Status Reason Start Date Expiration Date Visits Re quested Visits Authorized [id number] Closed 04/13/2019 10/22/2020 1 1 Encounter Details Date Type Department Care Team (Latest Contact Info) Description 05/02/2019 2:00 PM CDT Ancillary Procedure [facility] Obstetrics and Gynecology [address] [place] [address] Encounter for ultrasound to assess growth Social [...] UP Schedule Routine, Read Routine (OP Routine) 05/02/2019 2:12 PM CDT Encounter for ultrasound to assess growth documented in this encounter Results * US OB Follow Up (05/02/2019 2:12 PM CDT) Placenta Details posterior, Previa-no VIEWPOINT Estimated Weight 799 g&grams VIEWPOINT Presentation Breech VIEWPOINT Fetus# Fetus1 VIEWPOINT Anatomical Region Laterality Modality Abdomen N/A Ultrasound 05/02/2019 2:49 PM CDT us Cole Avilez MD IMG OB US PROCEDURES Final Re sult documented in this encounter Visit Diagnoses Diagnosis Encounter for ultrasound to assess growth documented in this encounter Care Teams Mechanical Applications Engineer Relationship Specialty Start Date End Date No, Physician PCP - General 07/10/17 06/02/19 Cole Avilez MD [address] [place] [address] Referring Physician Obstetrics and Gynecology 04/19/19 documented as of this encounter
--- OUTSIDE RECORDS SUMMARY | 2024-10-14 10:23 | XMS_ITS | Encounter Summary ---
Author Organization [facility] Address [address] [place] [address] Care Team Providers Care School Library Media Specialist Name Role Phone No, Physician Primary Care Provider [phone] Reason for Visit * Reason Comments Care Encounter Details Date Type Department Care Team ([facility] Contact Info) Description 09/23/2017 9:30 AM PLANT WRAPPER Office Visit [facility] [address] [facility] [address] [place] [phone] Janine Horvath, [place] [address] [facility] [address] [place] [address] Encounter for routine follow-up (Primary Dx) Social History Tobacco Use Types Packs/Day Years Used Date Smoking Tobacco: Heavy Smoker Cigarettes 0.5 6 Smokeless Tobacco: Never Comments:Smoking History Pac ks/day: 7 Cigarettes Alcohol Use Standard Drinks/Week Comments No 0 (1 standard drink = 0.6 oz pur e alcohol) Comments No Sex and Gender Information Value Date Recorded Sex Assigned at Not on file Legal Sex Female 1:52 PM CDT Gender Identity Not on file Sexual Orientation Not on file documented as of this encounter Last Filed Vital Signs Vital Sign Reading Time Taken Comments Blood Pressure 116/70 09/23/2017 9:53 AM PLANT WRAPPER Pulse - - Temperature - - Respiratory Rate - - Oxygen Saturation - - Inhaled Oxygen Concentration - - Weight 75.3 kg (166 lb) 09/23/2017 9:53 AM PLANT WRAPPER Height 160 cm (5' 3 ) 09/23/2017 9:53 AM PLANT WRAPPER Body Mass Index 29.41 09/23/2017 9:53 AM PLANT WRAPPER documented in this encounter Ordered Prescriptions Prescription Sig Dispense Quantity Refills Last Filled Start Date End Date norgestimate-ethin yl estradiol (MONONESSA, 28,) 0.25-35 mg-mcg per tablet Take 1 tablet by mouth daily. 28 tablet 12 09/23/2017 09/29/2017 documented in this encounter Progress Notes * Janine Horvath NP - 09/23/2017 9:30 AM CST Standard Office Visit Note Subjective: HPI: Linda Vizcarra is a 22 y.o. female here for a post exam; delivered a baby girl, Nel Cobb, on July 13, 2017, weighing 5 lb 7 oz and 18 in long; with episiotomy; bottle feeding and baby is doing well; would like to restart Mononessa for control; states has had 2 periods since delivery; states that she feels well; denies any issues with voiding, bowel movements; no complaints of pain; scored a 1 on the EPDS. I have reviewed: allergies, current medications, past medical history, past surgical history and problem list Review of Systems: Review of Systems Objective: Vitals: 09/23/17 0953 BP: 116/70 Weight: 166 lb (75.3 kg) Height: 160 cm (5' 3 ) Body mass index is 29.41 kg/m??. Physical Exam Constitutional: She is oriented to person, place, and time. She appears well- developed and well-nourished. Cardiovascular: Normal rate, regular rhythm and normal heart sounds. Pulmonary/Chest: Effort normal and breath sounds normal. Abdominal: Soft. Genitourinary: Rectum normal, vagina normal and uterus normal. Pelvic exam was performed with patient supine. There is no rash, tenderness or lesion on the right labia. There is no rash, tenderness or lesion on the left labia. Cervix exhibits no motion tenderness, no discharge and no friability. Right adnexum displays no tenderness. Left adnexum displays no tenderness. No vaginal discharge found. Lymphadenopathy: Right: No inguinal adenopathy present. Left: No inguinal adenopathy present. Neurological: She is alert and oriented to person, place, and time. Skin: Skin is warm and dry. Psychiatric: She has a normal mood and affect. Her behavior is normal. Vitals reviewed. Assessment/Plan: There are no diagnoses linked to this encounter. Janine Horvath NP T WRAPPER * Janine Horvath NP - 09/23/2017 9:30 AM CST EPDS done on 09-23-17 with post exam visit. T WRAPPER documented in this encounter Plan of Treatment Not on file documented as of this encounter Visit Diagnoses Diagnosis Encounter for routine follow-up- Primary documented in this encounter Care Teams School Library Media Specialist Relationship Specialty Start Date End Date No, Physician PCP - General 07/10/17 06/02/19 documented as of this encounter
--- OUTSIDE RECORDS SUMMARY | 2024-10-14 10:23 | XMS_ITS | Encounter Summary ---
Author Organization [facility] Medical [facility] Address [address] [place] [address] Care Team Providers Care Used Equipment Sales Representative Name Role Phone No, Physician Primary Care Provider [phone] Reason for Visit * Reason Onset Date Comments med refill 07/29/2017 Encounter Details Date Type Department Care Team (Late st Contact Info) Description 07/29/2017 Telephone [facility] [address] [facility] [address] [place] [address] Lillian Diego MA med refill Social History Tobacco Use Types Packs/Day Years [...] on file documented as of this encounter Ordered Prescriptions Prescription Sig Dispense Quantity Refills Last Filled Start Date End Date albuterol HFA (VENTOLIN HFA) 90 mcg/actuation inhaler Inhale 2 puffs every 6 (six) hours as needed for wheezing. 1 Inhaler 1 07/29/2017 08/24/2017 documented in this encounter Miscellaneous Notes * Telephone Encounter - Lillian Diego MA - 07/29/2017 10:37 AM CDT Patient contacted office for ventolin inhaler refill. Sent in 2 refills to [facility]. documented in this encounter Plan of Treatment Not on file documented as of this encounter Visit Diagnoses Not on filedocumented in this encounter Discontinued Medications Medication Sig Discontinue Reason Start Date End Da te albuterol HFA (VENTOLIN HFA) 90 mcg/actuation inhaler Inhale 2 puffs every 6 (six) hours as needed for wheezing. Reorder 04/24/2017 07/29/2017 documented as of this encounter Care Teams Used Equipment Sales Representative Relationship Specialty Start Date End Date No, Physician PCP - General 07/10/17 06/02/19 documented as of this encounter
--- OUTSIDE RECORDS SUMMARY | 2024-10-14 10:23 | XMS_ITS | Encounter Summary ---
Author Organization [facility] Address [address] [place] [address] Care Team Providers Care Embryology Teacher Name Role Phone No, Physician Primary Care Provider [phone] Reason for Visit * Reason Onset Date Comments med refill 12/31/2017 Encounter Details Date Type Department Care Team (Late st Contact Info) Description 12/31/2017 Telephone [facility] [address] [facility] [address] [place] [address] Lillian Diego MA med refill [...] hours as needed for wheezing. 1 Inhaler 12/31/2017 02/17/2018 documented in this encounter Miscellaneous Notes * Telephone Encounter - Lillian Diego MA - 12/31/2017 11:49 AM CDT Sent in refill of inhaler, patient advised to get primary md. documented in this encounter Plan of Treatment Not on file documented as of this encounter Visit Diagnoses Not on filedocumented in this encounter Discontinued Medications Medication Sig Discontinue Reason Start Date End Da te albuterol HFA (VENTOLIN HFA) 90 mcg/actuation inhaler Inhale 2 puffs every 6 (six) hours as needed for wheezing. Reorder 12/10/2017 12/31/2017 documented as of this encounter Care Teams Embryology Teacher Relationship Specialty Start Date End Date No, Physician PCP - General 07/10/17 06/02/19 documented as of this encounter
--- OUTSIDE RECORDS SUMMARY | 2024-10-14 10:23 | XMS_ITS | Encounter Summary ---
Author Organization [facility] Address [address] [place] [address] Phone Care Team Providers Care Relations Manager Name Role Phone No, Physician Primary Care Provider [phone] Cole Avilez MD Unavailable [phone] No, Physician Primary Care Provider [phone] Encounter Details Date Type Department Care Team (Late st Contact Info) Description 03/25/2019 Telephone [facility] Obstetrics and Gynecology [address] [place] [phone] Machelle Sagastume Social History Tobacco Use Types Packs/Day Years [...] Diagnoses Not on filedocumented in this encounter Care Teams Relations Manager Relationship Specialty Start Date End Date No, Physician PCP - General 07/10/17 06/02/19 No, Physician PCP - General 06/03/19 Cole Avilez MD [address] [place] [address] Referring Physician Obstetrics and Gynecology 04/19/19 documented as of this encounter
--- OUTSIDE RECORDS SUMMARY | 2024-10-14 10:23 | XMS_ITS | Encounter Summary ---
Author Organization [facility] Address [address] [place] [address] Phone Care Team Providers Care Medical Accounts Receivable Specialist Name Role Phone No, Physician Primary Care Provider [phone] Cole Avilez MD Unavailable [phone] No, Physician Primary Care Provider [phone] Encounter Details Date Type Department Care Team (Late st Contact Info) Description 03/28/2019 Telephone [facility] Obstetrics and Gynecology [address] [place] [id number] Machelle Sagastume Social History Tobacco Use [...] on filedocumented in this encounter Care Teams Medical Accounts Receivable Specialist Relationship Specialty Start Date End Date No, Physician PCP - General 07/10/17 06/02/19 No, Physician PCP - General 06/03/19 Cole Avilez MD [address] [place] [address] Referring Physician Obstetrics and Gynecology 04/19/19 documented as of this encounter
--- OUTSIDE RECORDS SUMMARY | 2024-10-14 10:23 | XMS_ITS | Encounter Summary ---
Author Organization [facility] Medical [facility] Address [address] [place] [address] Care Team Providers Care Training Coordinator Name Role Phone No, Physician Primary Care Provider [phone] Reason for Visit * Reason Onset Date Comments Inhaler refill 10/22/2017 Encounter Details Date Type Department Care Team (Late st Contact Info) Description 10/22/2017 Telephone [facility] [address] [facility] [address] [place] [address] Lillian Diego MA Inhaler refill Social History Tobacco Use Types Packs/Day [...] as needed for wheezing. 1 Inhaler 1 10/22/2017 11/13/2017 documented in this encounter Miscellaneous Notes * Telephone Encounter - Lillian Diego MA - 10/22/2017 1:27 PM CST Patient requested refill for ventolin inhaler. She recently delivered. She does not have a PCP. Sent in 2 refills to [facility] in [facility] [employer] [facility] documented in this encounter Plan of Treatment Not on file documented as of this encounter Visit Diagnoses Not on filedocumented in this encounter Discontinued Medications Medication Sig Discontinue Reason Start Date End Da te albuterol HFA (VENTOLIN HFA) 90 mcg/actuation inhaler Inhale 2 puffs every 6 (six) hours as needed for wheezing. Reorder 09/18/2017 10/22/2017 documented as of this encounter Care Teams Training Coordinator Relationship Specialty Start Date End Date No, Physician PCP - General 07/10/17 06/02/19 documented as of this encounter
--- OUTSIDE RECORDS SUMMARY | 2024-10-14 10:24 | XMS_ITS | Encounter Summary ---
Author Organization [facility] Address [address] [place] [address] Care Team Providers Care Sporting Goods Sales Associate Name Role Phone Miscellaneous, Not In File Primary Care Provider Unavailable Encounter Details Date Type Department Care Team (Late st Contact Info) Description 04/24/2017 12:48 PM CDT - 04/24/2017 11:59 PM CDT Hospital Encounter [facility] INTERIM Taras Cox MD 4 [facility] [address] [address] Discharge Disposition: Discharge to home or self care Social History Tobacco Use Types Packs/Day Years [...] on file documented as of this encounter Medications at Time of Discharge cholecalciferol (VITAMIN D3) 5,000 unit tablet take 1 tablet by oral route every day 30 5 01/19/2017 [id number] a (INTERNET SPECIALIST-PNV-DHA) 28 mg iron- 1 mg-200 mg capsule take 1 capsule by oral route every day 30 11 12/12/2016 albuterol HFA (VENTOLIN HFA) 90 mcg/actuation inhaler Inhale 2 puffs every 6 (six) hours as needed for wheezing. 1 Inhaler 2 04/24/2017 7 beclomethasone (QVAR) 40 mcg/actuation inhaler Inhale 2 puffs 2 (two) times a day. Rinse mouth with water after use to reduce aftertaste and incidence of candidiasis. Do not swallow. 8.7 g 2 04/24/2017 7 documented as of this encounter Discharge Disposition Disposition Code Departure Means Destination Discharge to home or self care documented in this encounter Plan of Treatment Not on file documented as of this encounter Procedures Procedure Name Priority Date/Time Associated Diagnosis Comments DIFFERENTIAL AUTO Routine 04/24/2017 11: 15 AM CDT GTT 50GM 1HR GESTATIONAL SCREEN Routine 04/24/2017 11:15 AM CDT HSV 1 AND 2 ANTIBODIES, IGG, IGM Routine 04/24/2017 11:15 AM CDT CBC WITH AUTO DIFFERENTIAL Routine 04/24/2017 11:15 AM CDT HEPATITIS C ANTIBODY Routine 04/24/2017 11:15 AM CDT HEPATITIS C RNA, QUANTITATIVE, PCR Routine 04/24/2017 11:15 AM CDT VITAMIN D 25 HYDROXY Routine 04/24/2017 11:15 AM CDT RPR Routine 04/24/2017 11:15 AM CDT DISCHARGE LABORATORY CUMULATIVE REPORT 04/24/2017 12:00 AM CDT documented in this encounter Results * Hepatitis C antibody (04/24/2017 11:15 AM CDT) Hep C Ab Negative Negative [facility] Blood specimen (specimen) 04/24/2017 11:15 AM CDT 04/25/2017 8:02 AM CDT Narrative TRAVIS AREVALO - 04/29/2017 2:23 PM CDT Test added to accn# [id number]. us Taras Cox MD LAB MICROBIOLOGY - GENERAL ORDERABLES Final Result TRAVIS AREVALO [address] [place] [address] * HSV 1 and 2 antibodies IgG, IgM (04/24/2017 11:15 AM CDT) [facility] HSV 1 IgG Positive Negative [facility] HSV 2 IgG Negative Negative [facility] HSV 1/2 IgM Negative Negative [facility] Comment: ADDITIONAL INFORMATION This test has been modified from the senior biostatistician's instructions. Its performance characteristics were determined by [facility] in a manner consistent with CLIA requirements. This test has not been cleared or approved by the U.S. Food and Drug Administration. Test Performed by: [address] [address] Blood specimen (specimen) 04/24/2017 11:15 AM CDT 04/24/2017 4:22 PM CDT Taras Cox MD LAB MICROBIOLOGY - GENERAL ORDERABLES Final Result [facility] AREVALO [address] [place] [address] * Hepatitis C RNA, quantitative, PCR (04/24/2017 11:15 AM CDT) [facility] HCV RNA qn Undetected Undetected IUnits/mL [facility] Comment: Result in log IU/mL is Undetected. ADDITIONAL INFORMATION The quantification range of this assay is 15 to 100,000,000 IU/mL (1.18 log to 8.00 log IU/mL). Testing was performed by the [employer] AmpliPrep/EDDIE TaqMan HCV Test, version 2.0 ([employer] Test Performed by: [address] [address] Blood specimen (specimen) 04/24/2017 11:15 AM CDT 04/24/2017 4:22 PM CDT Taras Cox MD LAB MICROBIOLOGY - GENERAL ORDERABLES Final Result Performing Organization Address City/[facility] Co de Phone Number TRAVIS AREVALO [address] [place] [address] * RPR, serum (04/24/2017 11:15 AM CDT) RPR Non-Reactiv e Non-Reactiv e [facility] Blood specimen (specimen) 04/24/2017 11:15 AM CDT 04/25/2017 8:02 AM CDT Taras Cox MD LAB MICROBIOLOGY - GENERAL ORDERABLES Final Result Performing Organization Address [facility] Co de Phone Number TRAVIS MICKEY [address] [place] [address] * Vitamin D 25 hydroxy (04/24/2017 11:15 AM CDT) Vitamin D 25-OH 57 30 - 80 ng/mL [facility] Blood specimen (specimen) 04/24/2017 11:15 AM CDT 04/24/2017 1:51 PM CDT Taras Cox MD LAB BLOOD ORDERABLES Final Result Performing Organization Address City/[facility] Co de Phone Number TRAVIS MICKEY [phone] [place] [address] * GTT, gestational diabetes 50gm screen (04/24/2017 11:15 AM CDT) GTT 50g gest screen 93 70 - 140 mg/dL [facility] Blood specimen (specimen) 04/24/2017 11:15 AM CDT 04/24/2017 1:52 PM CDT Taras Cox MD LAB BLOOD ORDERABLES Final Result Performing Organization Address City/[facility] Co de Phone Number [facility] [address] Department [place] [address] * (ABNORMAL) Differential, auto (04/24/2017 11:15 AM CDT) Pathologist [facility] Neutrophil pct 74.2 % [facility] Imm gran pct 1.1 % [facility] Lymphocyte pct 15.4 % [facility] Monocyte pct 7.9 % [facility] Eosinophil pct 0.2 % [facility] Basophil pct 0.1 % [facility] Neutrophil abs 11.81(H) 1.70 - 6.50 K/cumm [facility] Imm gran abs 0.18(H) 0.00 - 0.10 K/cumm [facility] Lymphocyte abs 2.45 0.80 - 3.30 K/cumm [facility] Monocyte abs 1.26(H) 0.20 - 0.80 K/cumm [facility] Eosinophil abs 0.21 0.00 - 0.50 K/cumm [facility] Basophil abs 0.02 0.00 - 0.10 K/cumm [facility] Blood specimen (specimen) 04/24/2017 11:15 AM CDT 04/24/2017 1:51 PM CDT Taras Cox MD LAB BLOOD ORDERABLES Final Result TRAVIS [address] Department [place] [address] * (ABNORMAL) CBC with auto differential (04/24/2017 11:15 AM CDT) Pathologist [facility] WBC 15.93(H) 3.80 - 9.90 K/cumm [facility] RBC 3.65(L) 3.90 - 5.20 M/cumm [facility] Hgb 11.6(L) 11.9 - 15.5 g/dL [facility] Hct 35.0(L) 35.6 - 45.5 % [facility] MCV 95.9 81.3 - 96.4 fL [facility] MCH 31.8 27.1 - 33.3 pg [facility] MCHC 33.1 32.3 - 35.7 g/dL [facility] RDW CV 13.2 11.1 - 14.9 % [facility] RDW SD 46.5 35.7 - 48.1 fL [facility] Plt 221 150 - 400 K/cumm [facility] MPV 11.8 9.1 - 12.3 fL [facility] NRBC 0.0 0.0 - 0.2 % [facility] NRBC abs 0.00 0.00 - 0.01 K/cumm [facility] Blood specimen (specimen) 04/24/2017 11:15 AM CDT 04/24/2017 1:51 PM CDT Taras Cox MD LAB BLOOD ORDERABLES Final Result TRAVIS [address] Department [place] [address] * DISCHARGE LABORATORY CUMULATIVE REPORT (04/24/2017 12:00 AM CDT) Narrative 04/24/2017 12:00 AM CDT Ordered by an unspecified provider. Historical Provider LAB BLOOD ORDERABLES Belkys l Result documented in this encounter Visit Diagnoses Not on filedocumented in this encounter Care Teams Sporting Goods Sales Associate Relationship Specialty Start Date End Date Miscellaneous, Not In File PCP - General 03/01/17 documented as of this encounter
--- OUTSIDE RECORDS SUMMARY | 2024-10-14 10:24 | XMS_ITS | Encounter Summary ---
Author Organization [facility] Medical Group Address [address] [place] [address] Care Team Providers Care Protection Specialist Name Role Phone No, Physician Primary Care Provider [phone] Reason for Visit * Reason Comments Routine Visit Encounter Details Date Type Department Care Team ([facility] Contact Info) Description 07/10/2017 4:00 PM CDT Routine [facility] [address] [place] [address] [address] [place] [phone] Taras Cox MD [address] [place] [address] [address] [place], [place] [id number] Encounter for supervision of normal first in third trimester (Primary Dx); 38 weeks gestation of Social History Tobacco Use Types Packs/Day Years [...] Sign Reading Time Taken Comments Blood Pressure 120/64 07/10/2017 4:12 PM CDT Pulse - - Temperature - - Respiratory Rate - - Oxygen Saturation - - Inhaled Oxygen Concentration - - Weight 83.9 kg (185 lb) 07/10/2017 4:12 PM CDT Height - - Body Mass Index 32.77 04/24/2017 9:28 AM CDT documented in this encounter Progress Notes * Taras Cox MD - 07/10/2017 4:00 PM CDT No c/os. EFW: 5.5-6#, baby ballots, S=D, smoking 5 cig per day, try to quit. Labor instructions. GBS done today. documented in this encounter Miscellaneous Notes * Addendum Note - Douglas Cuba MA - 07/10/2017 4:00 PM CDTAddended by: DOUGLAS CUBA on: 07/10/2017 05:02 PM Modules accepted: Orders documented in this encounter Plan of Treatment Not on file documented as of this encounter Procedures Procedure Name Priority Date/Time Associated Diagnosis Comments GROUP B STREPTOCOCCUS CULTURE Routine 07/10/2017 5:02 PM CDT Encounter for supervision of normal first in third trimester 38 weeks gestation of POCT URINALYSIS DIPSTICK Routine 07/10/2017 4:13 PM CDT Encounter for supervision of normal first in third trimester 38 weeks gestation of documented in this encounter Results * (ABNORMAL) Group B streptococcal culture Vaginal/Rectal (07/10/2017 5:02 PM CDT) Strep B culture, resp SEE NOTE(A) [facility] Comment: ??STREPTOCOCCUS, GROUP B CULTURE ?MICRO NUMBER: ?[id number] ??TEST STATUS: ? FINAL ??SPECIMEN SOURCE: ?? VAGINAL/ANORECTAL ??SPECIMEN QUALITY: ??ADEQUATE ??RESULT: ?Group B Streptococcus isolated ? Beta-hemolytic Streptococci are predictably ? susceptible to penicillin and other beta-lactams. ? Susceptibility testing not routinely performed. Vaginal/Rectal 07/10/2017 5: 02 PM CDT 07/11/2017 12:11 AM CDT Narrative Resulting Agency Comment Performing Organization Information: ?Site ID: ?Name: [facility] ?Address: [address] [place] [address] ?Director: Ronnell Davis MD Taras Cox MD LAB MICROBIOLOGY - GENERAL ORDERABLES Final Result [facility] [place], [place] * POCT urinalysis dipstick (07/10/2017 4:13 PM CDT) Glucose, ur, POC Negative mmol/L Protein, ur, POC Negative mg/dL Lot Number [id number] Urine 07/10/2017 4:13 PM CDT Taras Cox MD POINT OF CARE TEST ORDERAB LES Final Result documented in this encounter Visit Diagnoses Diagnosis Encounter for supervision of normal first in third trimester- Primary 38 weeks gestation of documented in this encounter Discontinued Medications Medication Sig Discontinue Reason Start Date End Da te beclomethasone (QVAR) 40 mcg/actuation inhaler Inhale 2 puffs 2 (two) times a day. Rinse mouth with water after use to reduce aftertaste and incidence of candidiasis. Do not swallow. Therapy completed 04/24/2017 07/10/2017 documented as of this encounter Care Teams Protection Specialist Relationship Specialty Start Date End Date No, Physician PCP - General 07/10/17 06/02/19 documented as of this encounter
--- OUTSIDE RECORDS SUMMARY | 2024-10-14 10:24 | XMS_ITS | Encounter Summary ---
Author Organization [facility] Medical Group Address [address] [place] [address] Care Team Providers Care Facilities Coordinator Name Role Phone Miscellaneous, Not In File Primary Care Provider Unavailable Reason for Visit * Reason Comments Routine Visit * OBGYN (Routine) - Canceled Specialty Diagnoses / Procedures Referred By Breanna paiz Referred To Contact Diagnoses Size of fetus inconsistent with dates in third trimester Procedures Ob Follow Up Taras Cox MD Phone: tel: fax: Referral ID Status Reason Start Date Expiration Date V isits Requested Visits Authorized [id number] Canceled 06/09/2017 12/06/2017 1 1 Encounter Details Date Type Department Care Team (Late st Contact Info) Description 06/09/2017 3:00 PM CDT Routine [facility] [address] [facility] [address] [place] [phone] Janine Horvath, JARRELL [address] [facility] [address] [place], [place] [id number] care, subsequent , third trimester (Primary Dx); 34 weeks gestation of Social History Tobacco Use [...] Sign Reading Time Taken Comments Blood Pressure 114/76 06/09/2017 3:20 PM CDT Pulse - - Temperature - - Respiratory Rate - - Oxygen Saturation - - Inhaled Oxygen Concentration - - Weight 83 kg (183 lb) 06/09/2017 3:20 PM CDT Height - - Body Mass Index 32.42 04/24/2017 9:28 AM CDT documented in this encounter Progress Notes * Janine Horvath NP - 06/09/2017 3:00 PM CDT Breech on Ultrasound; recommend pelvic rocking on hands and knees to help flip baby to vertex. documented in this encounter Plan of Treatment Not on file documented as of this encounter Procedures Procedure Name Priority Date/Time Associated Diagnosis Comments POCT URINALYSIS DIPSTICK Routine 06/09/2017 3:21 PM CDT care, subsequent , third trimester documented in this encounter Results * POCT urinalysis dipstick (06/09/2017 3:21 PM CDT) Glucose, ur, POC Negative mmol/L Protein, ur, POC Negative mg/dL Lot Number [id number] Urine 06/09/2017 3:21 PM CDT Janine Horvath NP POINT OF CARE TEST ORDERA BLES Final Result documented in this encounter Visit Diagnoses Diagnosis care, subsequent , third trimester- Primary 34 weeks gestation of documented in this encounter Care Teams Facilities Coordinator Relationship Specialty Start Date End Date Miscellaneous, Not In File PCP - General 03/01/17 documented as of this encounter
--- OUTSIDE RECORDS SUMMARY | 2024-10-14 10:24 | XMS_ITS | Encounter Summary ---
Author Organization [facility] Medical Group Address [address] [place] [address] Care Team Providers Care Building Illuminating Engineer Name Role Phone Miscellaneous, Not In File Primary Care Provider Unavailable Reason for Visit * Reason Onset Date Comments Hep C 04/29/2017 Encounter Details Date Type Department Care Team (Late st Contact Info) Description 04/29/2017 Telephone [facility] [address] [facility] [address] [place] [phone] Concetta Menjivar, RN Hep C Social History Tobacco Use Types Packs/Day Years [...] on file documented as of this encounter Miscellaneous Notes * Telephone Encounter - Concetta Menjivar RN - 04/29/2017 8:13 AM CDT Hep C Quantitative drawn instead of Hep C Antibody, Korin at [facility] will correct this. documented in this encounter Plan of Treatment Not on file documented as of this encounter Visit Diagnoses Not on filedocumented in this encounter Care Teams Building Illuminating Engineer Relationship Specialty Start Date End Date Miscellaneous, Not In File PCP - General 03/01/17 documented as of this encounter
--- OUTSIDE RECORDS SUMMARY | 2024-10-14 10:24 | XMS_ITS | Encounter Summary ---
Author Organization [facility] Medical Group Address [address] [place] [address] Care Team Providers Care Cutting Supervisor Name Role Phone Miscellaneous, Not In File Primary Care Provider Unavailable Reason for Visit * Reason Comments Routine Visit Encounter Details Date Type Department Care Team (Latest Contact Info) Description 05/15/2017 9:15 AM CDT Routine [facility] [address] [facility] [address] [place] [phone] Taras Cox MD [address] [place] [address] [address] [place], [place] [phone] Encounter for supervision of normal first in third trimester (Primary Dx); 30 weeks gestation of ; Size of fetus inconsistent with dates in third trimester; Need for wjrobbpihi-ahnhfqc-s ertussis (Tdap) vaccine Social History Tobacco Use Types Packs/Day Years [...] Sign Reading Time Taken Comments Blood Pressure 110/68 05/15/2017 2:21 PM CDT Pulse - - Temperature - - Respiratory Rate - - Oxygen Saturation - - Inhaled Oxygen Concentration - - Weight 79.4 kg (175 lb) 05/15/2017 2:21 PM CDT Height - - Body Mass Index 31 04/24/2017 9:28 AM CDT documented in this encounter Progress Notes * Taras Cox MD - 05/15/2017 9:15 AM CDT No c/os. EFW: 3#, 5-6 cig per day; Size on low end of normal range, check ANGIE winston. * Taras Cox MD - 05/15/2017 9:15 AM CDT 28 week labs WNL, reviewed. documented in this encounter Miscellaneous Notes * Addendum Note - Rhoda Gibbons RN - 05/15/2017 9:15 AM CDTAddended by: RHODA GIBBONS on: 05/15/2017 02:25 PM Modules accepted: Orders * Addendum Note - Rhoda Gibbons RN - 05/15/2017 9:15 AM CDTAddended by: RHODA GIBBONS on: 05/15/2017 04:55 PM Modules accepted: Orders documented in this encounter Plan of Treatment Not on file documented as of this encounter Procedures Procedure Name Priority Date/Time Associated Diagnosis Comments POCT URINALYSIS DIPSTICK Routine 05/15/2017 2:23 PM CDT Encounter for supervision of normal first in third trimester documented in this encounter Results * POCT urinalysis dipstick (05/15/2017 2:23 PM CDT) Glucose, ur, POC Negative mmol/L Protein, ur, POC Negative mg/dL Lot Number [id number] Urine 05/15/2017 2:23 PM CDT Taras Cox MD POINT OF CARE TEST ORDERAB LES Final Result documented in this encounter Visit Diagnoses Diagnosis Encounter for supervision of normal first in third trimester- Primary 30 weeks gestation of Size of fetus inconsistent with dates in third trimester Need for akxxhnmjyh-jvnvgli-quhqyhoim (Tdap) vaccine Need for prophylactic vaccination with combined lvuchrsbca-nxrnnyx-wpzkrdfkz (DTP) vaccine documented in this encounter Orders Immunization/Injection Count Last Ordered Date First Ordered Date TDAP VACCINE GREATER THAN OR EQUAL TO 7YO IM 1 05/15/2017 documented in this encounter Care Teams Cutting Supervisor Relationship Specialty Start Date End Date Miscellaneous, Not In File PCP - General 03/01/17 documented as of this encounter
--- OUTSIDE RECORDS SUMMARY | 2024-10-14 10:24 | XMS_ITS | Encounter Summary ---
Author Organization [facility] Medical Group Address [address] [place] [address] Care Team Providers Care Natural Gas Field Processing Supervisor Name Role Phone Miscellaneous, Not In File Primary Care Provider Unavailable Reason for Visit * Reason Comments Routine Visit Encounter Details Date Type Department Care Team (Late st Contact Info) Description 07/01/2017 3:00 PM CDT Routine [facility] [address] [facility] [address] [place] [address] Janine Horvath NP [address] [place] [address] [address] [place] [address] Encounter for supervision of normal first in third trimester (Primary Dx); 37 weeks gestation of Social History Tobacco Use [...] Sign Reading Time Taken Comments Blood Pressure 118/60 07/01/2017 3:21 PM CDT Pulse - - Temperature - - Respiratory Rate - - Oxygen Saturation - - Inhaled Oxygen Concentration - - Weight 83 kg (183 lb) 07/01/2017 3:21 PM CDT Height - - Body Mass Index 32.42 04/24/2017 9:28 AM CDT documented in this encounter Progress Notes * Janine Horvath NP - 07/01/2017 3:00 PM CDT Denies contraxs; baby vertex now---FHTs on 06/09/17 were 135 documented in this encounter Plan of Treatment Not on file documented as of this encounter Procedures Procedure Name Priority Date/Time Associated Diagnosis Comments POCT URINALYSIS DIPSTICK Routine 07/01/2017 3:23 PM CDT Encounter for supervision of normal first in third trimester documented in this encounter Results * POCT urinalysis dipstick (07/01/2017 3:23 PM CDT) Glucose, ur, POC Negative mmol/L Protein, ur, POC Negative mg/dL Lot Number [id number] Urine 07/01/2017 3:23 PM CDT Janine Horvath CONE WORKER POINT OF CARE TEST ORDERA BLES Final Result documented in this encounter Visit Diagnoses Diagnosis Encounter for supervision of normal first in third trimester- Primary 37 weeks gestation of documented in this encounter Care Teams Natural Gas Field Processing Supervisor Relationship Specialty Start Date End Date Miscellaneous, Not In File PCP - General 03/01/17 documented as of this encounter
--- OUTSIDE RECORDS SUMMARY | 2024-10-14 10:24 | XMS_ITS | Encounter Summary ---
Author Organization [facility] Medical Group Address [address] [facility] [address] [address] [place] [address] Care Team Providers Care Kayaking Instructor Name Role Phone Miscellaneous, Not In File Primary Care Provider Unavailable No, Physician Primary Care Provider [phone] Encounter Details Date Type Department Care Team (Latest Contact Info) Description 06/09/2017 2:30 PM CDT Clinical Support [facility] [address] [place] [address] [address] [place] [address] Size of fetus inconsistent with dates in third trimester (Primary Dx) Social History Tobacco Use Types [...] on file documented as of this encounter Procedure Notes * Taras Cox MD - 06/09/2017 12:00 AM CDT Procedure Obstetric ultrasound. Date of exam 06/09/2017. Diagnosis Size less than dates. Clinical history Patient is 34 weeks/2 days measuring size less than dates. Findings A repeat OB ultrasound examination reveals a tran intrauterine in breech position with movement seen. heart rate is 151 beats per minute. Placenta location is posterior. Amnioticfluid volume is normal with an EVENS of 10.8 cm. biometrics give an average gestational age of 33 weeks/2 days +/- 16 days and an ROSI of 07/26/2017. Estimated weight is 4 pounds/11 ounces +/- 11 ounces. This represents normal rate of growth. Cervical length is noted to be 4.1 cm. Impression 33 week/2 day average gestational age by this ultrasound representing normal rate of growth. documented in this encounter Plan of Treatment Not on file documented as of this encounter Visit Diagnoses Diagnosis Size of fetus inconsistent with dates in third trimester- Primary documented in this encounter Care Teams Kayaking Instructor Relationship Specialty Start Date End Date Miscellaneous, Not In File PCP - General 03/01/17 No, Physician PCP - General 07/10/17 06/02/19 documented as of this encounter
--- OUTSIDE RECORDS SUMMARY | 2024-10-14 10:24 | XMS_ITS | Encounter Summary ---
Author Organization [facility] Healthcare Address [address] [place] [address] Care Team Providers Care Material Mover Name Role Phone No, Physician Primary Care Provider [phone] Encounter Details Date Type Department Care Team (Latest Contact Info) Description 07/13/2017 3:27 AM CDT - 07/16/2017 10:20 AM CDT Hospital Encounter [address] [phone] Taras Cox MD [address] [place] [address] Discharge Disposition: Discharge to home or self [...] Sign Reading Time Taken Comments Blood Pressure - - Pulse - - Temperature - - Respiratory Rate - - Oxygen Saturation - - Inhaled Oxygen Concentration - - Weight 83.9 kg (184 lb 15.5 oz) 07/13/2017 4:10 AM CDT Height 160 cm (5' 2.99 ) 07/13/2017 4:10 AM CDT Body Mass Index 32.77 07/13/2017 4:10 AM CDT documented in this encounter Medications at Time of Discharge cholecalciferol (VITAMIN D3) 5,000 unit tablet take 1 tablet by oral route every day 30 5 01/19/2017 no.92-acap-VS-dha (PEDIATRIC PHYSICIAN ASSISTANT-PNV-DHA) 28 mg iron- 1 mg-200 mg capsule take 1 capsule by oral route every day 30 11 12/12/2016 albuterol HFA (VENTOLIN HFA) 90 mcg/actuation inhaler Inhale 2 puffs every 6 (six) hours as needed for wheezing. 1 Inhaler 2 04/24/2017 07/29/2017 documented as of this encounter Discharge Disposition Disposition Code Departure Means Destination Discharge to home or self care documented in this encounter Plan of Treatment Not on file documented as of this encounter Procedures Procedure Name Priority Date/Time Associated Diagnosis Comments DISCHARGE LABORATORY CUMULATIVE REPORT 07/16/2017 12:00 AM CDT DIFFERENTIAL AUTO Routine 07/14/2017 6:3 8 AM CDT CBC WITH AUTO DIFFERENTIAL Routine 07/14/2017 6:38 AM CDT DIFFERENTIAL AUTO STAT 07/13/2017 5:2 0 AM CDT CBC WITH AUTO DIFFERENTIAL STAT 07/13/2017 5:20 AM CDT ABO/RH STAT 07/13/2017 5:20 AM CDT ANTIBODY SCREEN STAT 07/13/2017 5:20 AM CDT PAMG-1 PROTEIN MARKER STAT 07/13/2017 3:50 AM CDT URINALYSIS AND REFLEX TO MICROSCOPIC AND CULTURE STAT 07/13/2017 3:40 AM CDT DRUGS OF ABUSE SCREEN, URINE WITHOUT CONFIRMATION STAT 07/13/2017 3:40 AM CDT documented in this encounter Results * DISCHARGE LABORATORY CUMULATIVE REPORT (07/16/2017 12:00 AM CDT) Narrative 07/16/2017 12:00 AM CDT Ordered by an unspecified provider. Historical Provider LAB BLOOD ORDERABLES Belkys l Result * (ABNORMAL) Differential, auto (07/14/2017 6:38 AM CDT) Neutrophil pct 85.4(H) 44.0 - 80.0 % [facility] ([facility]) Imm gran pct 1.1(H) 0.0 - 1.0 % [facility] ([place]) Lymphocyte pct 7.0(L) 13.0 - 44.0 % [facility] ([place]) Monocyte pct 6.3 2.0 - 11.0 % [facility] ([place]) Eosinophil pct 0.0 0.0 - 6.0 % [facility] ([place]) Basophil pct 0.2 0.0 - 3.0 % [facility] ([place]) Neutrophil abs 25.30(H) 1.60 - 7.00 K/cumm [facility] ([place]) Imm gran abs 0.33(H) 0.00 - 0.20 K/cumm [facility] ([place]) Lymphocyte abs 2.07 0.50 - 4.30 K/cumm [facility] ([place]) Monocyte abs 1.88(H) 0.10 - 1.00 K/cumm [facility] ([place]) Eosinophil abs 0.01 0.00 - 0.60 K/cumm [facility] ([place]) Basophil abs 0.05 0.00 - 0.30 K/cumm [facility] ([place]) Blood specimen (specimen) 07/14/2017 6:38 AM CDT 07/14/2017 6:41 AM CDT us Charly Toribio MD LAB BLOOD ORDERABLES F inal Result [facility] ([place]) [address] [facility] Department of Laboratories [place], [place] [id number] * (ABNORMAL) CBC with auto differential (07/14/2017 6:38 AM CDT) WBC 29.64(H) 3.80 - 9.80 K/cumm [facility] ([place]) RBC 4.03 3.90 - 5.00 M/cumm [facility] ([place]) Hgb 12.7 12.1 - 15.1 g/dL [facility] ([place]) Hct 36.6 36.1 - 44.3 % [facility] ([place]) MCV 90.8 80.0 - 100.0 fL [facility] ([place]) MCH 31.5 26.7 - 33.7 pg [facility] ([place]) MCHC 34.7 32.7 - 36.0 g/dL [facility] ([place]) RDW CV 13.2 11.5 - 14.6 % [facility] ([place]) Plt 212 140 - 440 K/cumm [facility] ([place]) MPV 12.2(H) 8.0 - 12.0 fL [facility] ([place]) NRBC 0.0 0.0 - 0.0 % [facility] ([place]) NRBC abs 0.00 0.00 - 0.00 K/cumm [facility] ([place]) Blood specimen (specimen) 07/14/2017 6:38 AM CDT 07/14/2017 6:41 AM CDT us Charly Toribio MD LAB BLOOD ORDERABLES F inal Result [facility] ([place]) [address] [facility] [place] [address] * Antibody screen (07/13/2017 5:20 AM CDT) Fili, indirect, Gel Interpretation Negative [facility] ([place]) Blood specimen (specimen) 07/13/2017 5:20 AM CDT 07/13/2017 5:25 AM CDT us Taras Cox MD LAB BLOOD BANK TEST ORDERA BLES Final Result [facility] ([place]) [address] [facility] [place] [place] [address] * ABO/Rh (07/13/2017 5:20 AM CDT) ABO/Rh A Positive [facility] ([place]) Blood specimen (specimen) 07/13/2017 5:20 AM CDT 07/13/2017 5:25 AM CDT Taras Cox MD LAB BLOOD BANK TEST ORDERA BLES Final Result [facility] ([place]) [address] [facility] [place] [address] * (ABNORMAL) Differential, auto (07/13/2017 5:20 AM CDT) Neutrophil pct 72.0 44.0 - 80.0 % [facility] ([place]) Imm gran pct 0.7 0.0 - 1.0 % [facility] ([place]) Lymphocyte pct 17.1 13.0 - 44.0 % [facility] ([place]) Monocyte pct 8.8 2.0 - 11.0 % [facility] ([place]) Eosinophil pct 1.2 0.0 - 6.0 % [facility] ([place]) Basophil pct 0.2 0.0 - 3.0 % [facility] ([place]) Neutrophil abs 10.43(H) 1.60 - 7.00 K/cumm [facility] ([place]) Imm gran abs 0.10 0.00 - 0.20 K/cumm [facility] ([place]) Lymphocyte abs 2.48 0.50 - 4.30 K/cumm [facility] ([place]) Monocyte abs 1.28(H) 0.10 - 1.00 K/cumm [facility] ([place]) Eosinophil abs 0.17 0.00 - 0.60 K/cumm [facility] ([place]) Basophil abs 0.03 0.00 - 0.30 K/cumm [facility] ([place]) Blood specimen (specimen) 07/13/2017 5:20 AM CDT 07/13/2017 5:25 AM CDT Taras Cox MD LAB BLOOD ORDERABLES Final Result [facility] ([place]) [address] [facility] Department [place] [address] * (ABNORMAL) CBC with auto differential (07/13/2017 5:20 AM CDT) Pathologist [facility] WBC 14.49(H) 3.80 - 9.80 K/cumm [facility] ([place]) RBC 4.36 3.90 - 5.00 M/cumm [facility] ([place]) Hgb 13.6 12.1 - 15.1 g/dL [facility] ([place]) Hct 38.9 36.1 - 44.3 % [facility] ([place]) MCV 89.2 80.0 - 100.0 fL [facility] ([place]) MCH 31.2 26.7 - 33.7 pg [facility] ([place]) MCHC 35.0 32.7 - 36.0 g/dL [facility] ([place]) RDW CV 13.1 11.5 - 14.6 % [facility] ([place]) Plt 218 140 - 440 K/cumm [facility] ([place]) MPV 12.2(H) 8.0 - 12.0 fL [facility] ([place]) NRBC 0.0 0.0 - 0.0 % [facility] ([place]) NRBC abs 0.00 0.00 - 0.00 K/cumm [facility] ([place]) Blood specimen (specimen) 07/13/2017 5:20 AM CDT 07/13/2017 5:25 AM CDT Taras Cox MD LAB BLOOD ORDERABLES Final Result [facility] ([place]) [address] [facility] Department [place] [address] * (ABNORMAL) PAMG-1 protein marker (07/13/2017 3:50 AM CDT) Pathologist [facility] Alpha 1 microglobulin Positive( A) Negative [facility] ([place]) Amniotic fluid 07/13/2017 3: 50 AM CDT 07/13/2017 4:17 AM CDT Taras Cox MD LAB BODY FLUIDS AND STOOLS ORDERABLES Final Result [facility] ([place]) [address] [facility] Department [place] [address] * (ABNORMAL) Drug screen, urine (07/13/2017 3:40 AM CDT) Amphetamines, Class Negative Screen Negative Screen [facility] ([place]) Comment: Interpretive Data Amphetamines cut off value 1000 ng/mL Current interpretive data was last revised on 2014. Barbiturates, Class Negative Screen Negative Screen [facility] ([place]) Comment: Interpretive Data Barbiturates cut off value 200 ng/mL Current interpretive data was last revised on 2015. Benzodiazepines, ur Negative Screen Negative Screen [facility] ([place]) Comment: Interpretive Data Benzodiazepines cut off value 200 ng/mL Current interpretive data was last revised on 2014. Cannabinoids, Screen Positive Screen(A) Negative Screen [facility] ([place]) Comment: Interpretive Data THC/Marijuana cut off value 50 ng/mL Current interpretive data was last revised on 2014. Cocaine metabolite Negative Screen Negative Screen [facility] ([place]) Comment: Interpretive Data Cocaine cut off value 300 ng/mL Current interpretive data was last revised on 2014. Opiates, Class Negative Screen Negative Screen [facility] ([place]) Comment: Interpretive Data Opiates cut off value 2000 ng/mL Current interpretive data was last revised on 2014. Phencyclidine, ur Negative Screen Negative Screen [facility] ([place]) Comment: Interpretive Data PCP cut off value 25 ng/mL All drugs included in this panel are screening testing only. All positive urines will be confirmed upon Doctor request only. Unconfirmed screening results must not be used for non-medical purposes. Current interpretive data was last revised on 2015. Urine 07/13/2017 3:40 AM CDT 07/13/2017 4:19 AM CDT Taras Cox MD LAB URINE ORDERABLES Final Result [facility] ([place]) [address] [facility] Department [place] [address] * Urinalysis reflex to microscopic and culture (07/13/2017 3:40 AM CDT) Color, ur Yellow Yellow [facility] ([place]) Clarity, ur Clear Clear [facility] ([place]) Specific gravity, ur 1.010 1.003 - 1.030 [facility] ([place]) Comment:Normal Ranges: 1.003 -1.030 pH, ur 6.5 4.5 - 8.0 [facility] ([place]) Comment:Normal ranges: 4.5-8 .0 Protein, ur ql Negative Negative mg/dL [facility] ([place]) Glucose, ur ql Negative Negative mg/dL [facility] ([place]) Ketones, ur Negative Negative [facility] ([place]) Bilirubin, ur Negative Negative [facility] ([place]) Blood, ur Negative Negative [facility] ([place]) Urobilinogen, ur 0.2 0.2 - 1.0 [facility] ([place]) Comment:Normal Ranges: 0.2-1 .0 EU/dL Nitrites, ur Negative Negative [facility] ([place]) Leukocyte esterase, ur Negative Negative [facility] ([place]) Urine 07/13/2017 3:40 AM CDT 07/13/2017 3:57 AM CDT Narrative [facility] ([place]) - 07/13/2017 4:02 AM CDT CLEAN VOID Taras Cox MD LAB MICROBIOLOGY - GENERAL ORDERABLES Final Result [facility] ([place]) [address] [facility] [place] [address] documented in this encounter Visit Diagnoses Not on filedocumented in this encounter Care Teams Material Mover Relationship Specialty Start Date End Date No, Physician PCP - General 07/10/17 06/02/19 documented as of this encounter
--- OUTSIDE RECORDS SUMMARY | 2024-10-14 10:25 | XMS_ITS | Encounter Summary ---
Author Organization [facility] Address [address] [place] [address] Care Team Providers Care Passenger Locomotive Engineer Name Role Phone Miscellaneous, Not In File Primary Care Provider Unavailable Reason for Visit * Reason Comments Routine Visit Encounter Details Date Type Department Care Team (Late st Contact Info) Description 04/24/2017 9:15 AM CDT Routine [facility] [address] [facility] [address] [place] [phone] Taras Cox MD [address] [facility] [address] [place], [place] [id number] Encounter for supervision of normal first in third trimester (Primary Dx); 27 weeks gestation of Social History Tobacco Use [...] Sign Reading Time Taken Comments Blood Pressure 104/66 04/24/2017 9:28 AM CDT Pulse - - Temperature - - Respiratory Rate - - Oxygen Saturation - - Inhaled Oxygen Concentration - - Weight 78.9 kg (174 lb) 04/24/2017 9:28 AM CDT Height 160 cm (5' 3 ) 04/24/2017 9:28 AM CDT Body Mass Index 30.82 04/24/2017 9:28 AM CDT documented in this encounter Ordered Prescriptions Prescription [...] swallow. 8.7 g 2 04/24/2017 7 documented in this encounter Progress Notes * Taras Cox MD - 04/24/2017 9:15 AM CDT No c/os. S=D. 28 week labs today. Smoking cessation encouraged. documented in this encounter Miscellaneous Notes * Addendum Note - Concetta Menjivar RN - 04/24/2017 9:15 AM CDTEncounter addended by: Concetta Menjivar RN on: 04/24/2017 10:53 AM
Actions taken: Lead Former activity accessed documented in this encounter Plan of Treatment Not on file documented as of this encounter Procedures Procedure Name Priority Date/Time Associated Diagnosis Comments POCT URINALYSIS DIPSTICK Routine 04/24/2017 9:35 AM CDT Encounter for supervision of normal first in third trimester documented in this encounter Results * POCT urinalysis dipstick (04/24/2017 9:35 AM CDT) Glucose, ur, POC Negative mmol/L Protein, ur, POC Negative mg/dL Lot Number [id number] Urine 04/24/2017 9:35 AM CDT Taras Cox MD POINT OF CARE TEST ORDERAB LES Final Result documented in this encounter Visit Diagnoses Diagnosis Encounter for supervision of normal first in third trimester- Primary 27 weeks gestation of documented in this encounter Discontinued Medications Medication Sig Discontinue Reason Start Date End Da te albuterol HFA (VENTOLIN HFA) 90 mcg/actuation inhaler inhale 2 puff by inhalation route every 4 - 6 hours as needed Reorder 12/12/2016 04/24/2017 documented as of this encounter Care Teams Passenger Locomotive Engineer Relationship Specialty Start Date End Date Miscellaneous, Not In File PCP - General 03/01/17 documented as of this encounter
--- OUTSIDE RECORDS SUMMARY | 2024-10-14 10:25 | XMS_ITS | Encounter Summary ---
Author Organization [facility] Medical Group Address [address] [place] [address] Care Team Providers Care Casino Cashier Manager Name Role Phone Miscellaneous, Not In File Primary Care Provider Unavailable Encounter Details Date Type Department Care Team (Late st Contact Info) Description 01/16/2017 Orders Only [facility] [address] [facility] [address] [place] [address] Taras Cox MD 4 [facility] [address] [place] [address] Social History Tobacco Use Types Packs/Day Years Used Date Smoking Tobacco: Light Smoker Comments:Smoking History Pac ks/day: 7 Cigarettes Alcohol Use Standard Drinks/Week Comments No 0 (1 standard drink = 0.6 oz pur e alcohol) Comments Unknown Sex and Gender Information Value Date Recorded Sex Assigned at Not on file Legal Sex Female 1:52 PM CDT Gender Identity Not on file Sexual Orientation Not on file documented as of this encounter Plan of Treatment Not on file documented as of this encounter Procedures Procedure Name Priority Date/Time Associated Diagnosis Comments CBC WITH AUTO DIFFERENTIAL Routine 01/16/2017 2:35 PM CDT documented in this encounter Results * CBC with auto differential (01/16/2017 2:35 PM CDT) WBC 8.89 3.80 - 9.90 K/cumm [facility] RBC 4.22 3.90 - 5.20 M/cumm [facility] Hgb 13.0 11.9 - 15.5 g/dL [facility] Hct 37.8 35.6 - 45.5 % [facility] MCV 89.6 81.3 - 96.4 fL [facility] MCH 30.8 27.1 - 33.3 pg [facility] MCHC 34.4 32.3 - 35.7 g/dL [facility] RDW CV 12.8 11.1 - 14.9 % [facility] RDW SD 41.7 35.7 - 48.1 fL [facility] Plt 208 150 - 400 K/cumm [facility] MPV 11.6 9.1 - 12.3 fL [facility] NRBC 0.0 0.0 - 0.2 % [facility] NRBC abs 0.00 0.00 - 0.01 K/cumm [facility] Blood specimen (specimen) 01/16/2017 2:35 PM CDT 01/16/2017 2:35 PM CDT Taras Cox MD LAB BLOOD ORDERABLES Final Result [facility] [id number] [address] Department [place] [address] documented in this encounter Visit Diagnoses Not on filedocumented in this encounter Care Teams Casino Cashier Manager Relationship Specialty Start Date End Date Miscellaneous, Not In File PCP - General 03/01/17 documented as of this encounter
--- OUTSIDE RECORDS SUMMARY | 2024-10-14 10:25 | XMS_ITS | Encounter Summary ---
Author Organization [facility] Medical [facility] Address [address] [place] [address] Care Team Providers Care Supply Chain Generalist Name Role Phone Miscellaneous, Not In File Primary Care Provider Unavailable Encounter Details Date Type Department Care Team (Late st Contact Info) Description 01/16/2017 Orders Only [facility] 4 [facility] [address] [place] [address] Taras Cox MD [address] [place] [address] [address] [place] [address] Social History Tobacco Use Types [...] Procedure Name Priority Date/Time Associated Diagnosis Comments RUBELLA IGG Routine 01/16/2017 2:35 PM CDT documented in this encounter Results * Rubella antibody, IgG (01/16/2017 2:35 PM CDT) Rubella IgG Immune Immune [facility] Blood specimen (specimen) 01/16/2017 2:35 PM CDT 01/16/2017 2:35 PM CDT us Taras Cox MD LAB MICROBIOLOGY - GENERAL ORDERABLES Final Result [facility] [id number] [address] Department [place] [address] documented in this encounter Visit Diagnoses Not on filedocumented in this encounter Care Teams Supply Chain Generalist Relationship Specialty Start Date End Date Miscellaneous, Not In File PCP - General 03/01/17 documented as of this encounter
--- OUTSIDE RECORDS SUMMARY | 2024-10-14 10:25 | XMS_ITS | Encounter Summary ---
Author Organization [facility] Medical Group Address [address] [place] [address] Care Team Providers Care License Registration Examiner Name Role Phone Miscellaneous, Not In File Primary Care Provider Unavailable Encounter Details Date Type Department Care Team (Late st Contact Info) Description 01/16/2017 Orders Only [facility] [address] [facility] [address] [place] [id number] Taras Cox MD [address] [facility] [address] [place] [address] Social History Tobacco Use Types [...] Procedure Name Priority Date/Time Associated Diagnosis Comments VARICELLA ZOSTER ANTIBODY, IGG Routine 01/16/2017 2:35 PM CDT documented in this encounter Results * Varicella zoster antibody, IgG (01/16/2017 2:35 PM CDT) VZV IgG Positive [facility] AREVALO Comment: Interpretive Data Negative: ??No detectable antibody to Varicella-zoster ? virus. ??Such individuals ? are presumed to be uninfected with VZV and to ? be susceptible to primary infection. Equivocal: Presence or absence of detectable antibodies ? to VZV IgG cannot be determined and the test ? should be repeated. Positive: ??Indicated presence of detectable antibody to ? VZV. ??Indicative of current ? or previous infection or vaccination. Current interpretive data was last revised on 2016. Blood specimen (specimen) 01/16/2017 2:35 PM CDT 01/19/2017 9:34 AM CDT Taras Cox MD LAB MICROBIOLOGY - GENERAL ORDERABLES Final Result Performing Organization Address City/State/[facility] Co de Phone Number TRAVIS [phone] [address] Department [place] [address] documented in this encounter Visit Diagnoses Not on filedocumented in this encounter Care Teams License Registration Examiner Relationship Specialty Start Date End Date Miscellaneous, Not In File PCP - General 03/01/17 documented as of this encounter
--- OUTSIDE RECORDS SUMMARY | 2024-10-14 10:25 | XMS_ITS | Encounter Summary ---
Author Organization [facility] Address [address] [place] [address] Care Team Providers Care Field Representatives Director Name Role Phone Unavailable Primary Care Provider Unavailabl e Encounter Details Date Type Department Care Team (Late st Contact Info) Description 01/16/2017 2:33 PM CDT - 01/16/2017 11:59 PM CDT Hospital Encounter [facility] INTERIM Taras Cox MD [address] [place] [address] [address] BELTRAN [address] [place] [address] Discharge Disposition: Discharge to home or self [...] this encounter Medications at Time of Discharge [id number] a (SIGN POSTER-PNV-DHA) 28 mg iron- 1 mg-200 mg capsule take 1 capsule by oral route every day 30 11 12/12/2016 albuterol HFA (VENTOLIN HFA) 90 mcg/actuation inhaler inhale 2 puff by inhalation route every 4 - 6 hours as needed 1 Inhaler 4 12/12/2016 7 documented as of this encounter Discharge Disposition Disposition Code Departure Means Destination Discharge to home or self care documented in this encounter Plan of Treatment Not on file documented as of this encounter Visit Diagnoses Not on filedocumented in this encounter
--- OUTSIDE RECORDS SUMMARY | 2024-10-14 10:25 | XMS_ITS | Encounter Summary ---
Author Organization [facility] Medical [facility] Address [address] [place] [address] Care Team Providers Care Photographic Spotter Name Role Phone Miscellaneous, Not In File Primary Care Provider Unavailable Reason for Visit * Reason Comments Routine Visit Encounter Details Date Type Department Care Team (Late st Contact Info) Description 03/25/2017 3:30 PM CDT Routine [facility] [address] [facility] [address] [place] [address] Janine Horvath, DIRECTOR EXTERNAL COMMUNICATIONS 4 [facility] [address] [place] [address] Encounter for supervision of normal first in second trimester (Primary Dx); 23 weeks gestation of Social History Tobacco Use Types Packs/Day Years Used Date Smoking Tobacco: Heavy Smoker Cigarettes 0.5 6 Comments:Smoking History Pac ks/day: 7 Cigarettes Alcohol [...] Sign Reading Time Taken Comments Blood Pressure 128/52 03/25/2017 3:42 PM CDT Pulse - - Temperature - - Respiratory Rate - - Oxygen Saturation - - Inhaled Oxygen Concentration - - Weight 74.4 kg (164 lb) 03/25/2017 3:42 PM CDT Height 160 cm (5' 3 ) 03/25/2017 3:42 PM CDT Body Mass Index 29.05 03/25/2017 3:42 PM CDT documented in this encounter Progress Notes * Janine Horvath WHNP - 03/25/2017 3:30 PM CDT Normal OB recheck; order for 28 week labs given with instructions. documented in this encounter Plan of Treatment Not on file documented as of this encounter Procedures Procedure Name Priority Date/Time Associated Diagnosis Comments POCT URINALYSIS DIPSTICK Routine 03/25/2017 3:58 PM CDT Encounter for supervision of normal first in second trimester documented in this encounter Results * POCT urinalysis dipstick (03/25/2017 3:58 PM CDT) Glucose, ur, POC Negative mmol/L Protein, ur, POC Negative mg/dL Lot Number [id number] Urine 03/25/2017 3:58 PM CDT Janine Horvath DIRECTOR EXTERNAL COMMUNICATIONS POINT OF CARE TEST ORDERA BLES Final Result documented in this encounter Visit Diagnoses Diagnosis Encounter for supervision of normal first in second trimester- Primary 23 weeks gestation of documented in this encounter Care Teams Photographic Spotter Relationship Specialty Start Date End Date Miscellaneous, Not In File PCP - General 03/01/17 documented as of this encounter
--- OUTSIDE RECORDS SUMMARY | 2024-10-14 10:25 | XMS_ITS | Encounter Summary ---
Author Organization [facility] Medical Group Address [address] [place] [address] Care Team Providers Care Geriatric Social Worker Name Role Phone Miscellaneous, Not In File Primary Care Provider Unavailable Encounter Details Date Type Department Care Team (Late st Contact Info) Description 01/16/2017 Orders Only [facility] [address] [facility] [address] [place] [address] Taras Cox MD [address] [place] [address] [address] [place] [address] Social History Tobacco Use Types [...] Procedure Name Priority Date/Time Associated Diagnosis Comments HIV 1/2 ANTIBODY PLUS P24 ANTIGEN Routine 01/16/2017 2:35 PM CDT documented in this encounter Results * HIV-1 and HIV-2 antibody with P24 antigen immunoassay (01/16/2017 2:35 PM CDT) HIV 1/2 ab + p24 ag Nonreactive [facility] Blood specimen (specimen) 01/16/2017 2:35 PM CDT 01/16/2017 2:36 PM CDT us Taras Cox MD LAB MICROBIOLOGY - GENERAL ORDERABLES Final Result [facility] [id number] [address] Department [place] [address] documented in this encounter Visit Diagnoses Not on filedocumented in this encounter Care Teams Geriatric Social Worker Relationship Specialty Start Date End Date Miscellaneous, Not In File PCP - General 03/01/17 documented as of this encounter
--- OUTSIDE RECORDS SUMMARY | 2024-10-14 10:25 | XMS_ITS | Encounter Summary ---
Author Organization [facility] Medical Group Address [address] [place] [address] Care Team Providers Care Inventory Analyst Name Role Phone Miscellaneous, Not In File Primary Care Provider Unavailable Encounter Details Date Type Department Care Team (Late st Contact Info) Description 01/16/2017 Orders Only [facility] [address] [facility] [address] [place] [address] Taras Cox MD [address] [facility] [address] [place] [address] Social History Tobacco Use Types [...] Date/Time Associated Diagnosis Comments DIFFERENTIAL AUTO Routine 01/16/2017 2:3 5 PM CDT documented in this encounter Results * Differential, auto (01/16/2017 2:35 PM CDT) Neutrophil pct 70.1 % [facility] Imm gran pct 0.3 % [facility] Lymphocyte pct 19.5 % [facility] Monocyte pct 8.8 % [facility] Eosinophil pct 0.1 % [facility] Basophil pct 0.1 % [facility] Neutrophil abs 6.23 1.70 - 6.50 K/cumm [facility] Imm gran abs 0.03 0.00 - 0.10 K/cumm [facility] Lymphocyte abs 1.73 0.80 - 3.30 K/cumm [facility] Monocyte abs 0.78 0.20 - 0.80 K/cumm [facility] Eosinophil abs 0.11 0.00 - 0.50 K/cumm [facility] Basophil abs 0.01 0.00 - 0.10 K/cumm [facility] Blood specimen (specimen) 01/16/2017 2:35 PM CDT 01/16/2017 2:35 PM CDT us Taras Cox MD LAB BLOOD ORDERABLES Final Result [facility] [id number] [address] Department [place] [address] documented in this encounter Visit Diagnoses Not on filedocumented in this encounter Care Teams Inventory Analyst Relationship Specialty Start Date End Date Miscellaneous, Not In File PCP - General 03/01/17 documented as of this encounter
--- OUTSIDE RECORDS SUMMARY | 2024-10-14 10:25 | XMS_ITS | Encounter Summary ---
Author Organization [facility] Medical Group Address [address] [place] [address] Care Team Providers Care Gift Officer Name Role Phone Miscellaneous, Not In File Primary Care Provider Unavailable Encounter Details Date Type Department Care Team (Late st Contact Info) Description 01/16/2017 Orders Only [facility] [address] [facility] [address] [place] [address] Taras Cox MD [address] [place] [address] [address] [place] [address] Social History Tobacco Use Types [...] Procedure Name Priority Date/Time Associated Diagnosis Comments HEPATITIS B SURFACE ANTIGEN Routine 01/16/2017 2:35 PM CDT documented in this encounter Results * Hepatitis B surface antigen (01/16/2017 2:35 PM CDT) HepBsAg Negative Negative [facility] Blood specimen (specimen) 01/16/2017 2:35 PM CDT 01/16/2017 2:35 PM CDT us Taras Cox MD LAB MICROBIOLOGY - GENERAL ORDERABLES Final Result [facility] [address] [address] Department [place] [address] documented in this encounter Visit Diagnoses Not on filedocumented in this encounter Care Teams Gift Officer Relationship Specialty Start Date End Date Miscellaneous, Not In File PCP - General 03/01/17 documented as of this encounter
--- OUTSIDE RECORDS SUMMARY | 2024-10-14 10:25 | XMS_ITS | Encounter Summary ---
Author Organization [facility] Medical Group Address [address] [place] [address] Care Team Providers Care Tool Marker Name Role Phone Miscellaneous, Not In File Primary Care Provider Unavailable Encounter Details Date Type Department Care Team (Late st Contact Info) Description 01/16/2017 Orders Only [facility] [address] [facility] [address] [place] [address] Taras Cox MD [address] [place] [address] [address] [place] [address] Social History Tobacco Use Types [...] Procedure Name Priority Date/Time Associated Diagnosis Comments VITAMIN D 25 HYDROXY Routine 01/16/2017 2:35 PM CDT documented in this encounter Results * (ABNORMAL) Vitamin D 25 hydroxy (01/16/2017 2:35 PM CDT) Vitamin D 25-OH <13(L) 30 - 80 ng/mL [facility] Blood specimen (specimen) 01/16/2017 2:35 PM CDT 01/16/2017 2:36 PM CDT us Taras Cox MD LAB BLOOD ORDERABLES Final Result [facility] [address] [address] Department [place] [address] documented in this encounter Visit Diagnoses Not on filedocumented in this encounter Care Teams Tool Marker Relationship Specialty Start Date End Date Miscellaneous, Not In File PCP - General 03/01/17 documented as of this encounter
--- OUTSIDE RECORDS SUMMARY | 2024-10-14 10:25 | XMS_ITS | Encounter Summary ---
Author Organization [facility] Medical Group Address [address] [place] [address] Care Team Providers Care Manager Process Name Role Phone Miscellaneous, Not In File Primary Care Provider Unavailable Encounter Details Date Type Department Care Team (Late st Contact Info) Description 01/16/2017 Orders Only [facility] [address] [facility] [address] [place] [address] Taras Cox MD 4 [facility] [address] [place] [address] Social History Tobacco Use Types [...] Name Priority Date/Time Associated Diagnosis Comments HEPATITIS C RNA, QUANTITATIVE, PCR Routine 01/16/2017 2:35 PM CDT documented in this encounter Results * Hepatitis C RNA, quantitative, PCR (01/16/2017 2:35 PM CDT) HCV RNA qn Undetected Undetected IUnits/mL TRA[facility] AREVALO Comment: Result in log IU/mL is Undetected. ADDITIONAL INFORMATION The quantification range of this assay is 15 to 100,000,000 IU/mL (1.18 log to 8.00 log IU/mL). Testing was performed by the [employer] AmpliPrep/EDDIE TaqMan HCV Test, version 2.0 ([employer] Test Performed by: [address] [address] Blood specimen (specimen) 01/16/2017 2:35 PM CDT 01/16/2017 5:45 PM CDT us Taras Cox MD LAB MICROBIOLOGY - GENERAL ORDERABLES Final Result [facility] [place] [facility] [address] [address] Department [place] [address] documented in this encounter Visit Diagnoses Not on filedocumented in this encounter Care Teams Manager Process Relationship Specialty Start Date End Date Miscellaneous, Not In File PCP - General 03/01/17 documented as of this encounter
--- OUTSIDE RECORDS SUMMARY | 2024-10-14 10:25 | XMS_ITS | Encounter Summary ---
Author Organization [facility] Medical Group Address [address] [place] [address] Care Team Providers Care Tearer Press Clipping Name Role Phone Miscellaneous, Not In File Primary Care Provider Unavailable Encounter Details Date Type Department Care Team (Late st Contact Info) Description 01/16/2017 Orders Only [facility] [address] [facility] [address] [place] [address] Taras Cox MD [address] [place] [address] [address] [place] [address] Social History Tobacco Use Types [...] Procedure Name Priority Date/Time Associated Diagnosis Comments RPR Routine 01/16/2017 2:35 PM CDT documented in this encounter Results * RPR, serum (01/16/2017 2:35 PM CDT) RPR Non-Reactiv e Non-Reactiv e [facility] Blood specimen (specimen) 01/16/2017 2:35 PM CDT 01/16/2017 2:35 PM CDT us Taras Cox MD LAB MICROBIOLOGY - GENERAL ORDERABLES Final Result [facility] [address] [address] Department of Laboratories [place], [place] [id number] documented in this encounter Visit Diagnoses Not on filedocumented in this encounter Care Teams Tearer Press Clipping Relationship Specialty Start Date End Date Miscellaneous, Not In File PCP - General 03/01/17 documented as of this encounter
--- OUTSIDE RECORDS SUMMARY | 2024-10-14 10:26 | XMS_ITS | Clinical Summary ---
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 Gender Identity Not on file Sexual Orientation Not on file Plan of Treatment Health Maintenance Due Date Last Done Comments Hepatitis C Virus (HCV) Screening 1993 TdaP Immunization 1993 Hepatitis B Immunization (1 of 3 - 19+ 3-dose series) 2012 Pap Smear 2014 SARS-COV-2 Immunization ( season) 2023 Cervical Cancer Screening (CCS) 2023 HPV/Cotest 2023 Influenza Immunization (Seas on Ended) 2024 Meningococcal Immunization (ACWY) Aged Out No longer eligible based on patient's age to complete this topic Pneumococcal Immunization Combined Aged Out No longer eligible based on patient's age to complete this topic Rotavirus Immunization Aged Out No lo nger eligible based on patient's age to complete this topic Care Teams Machine Stapler Relationship Specialty Start Date End Date Provider, None [place] PCP - General 12/15/16
== END 2024-10-08 14:20 | disposition home or self-care (01) | DRG 807 ==
LOC: ANHLDR 08:43 → ANHOB2 14:44
PROVIDERS: Admitting Provider Obstetrics & Gynecology; PCP Nurse Practitioner Family; Visit Provider Advanced Practice Midwife
DX: O40.3XX0 Polyhydramnios, third trimester, not applicable or unspecified (principal); Z37.0 Single live birth; Z3A.39 39 weeks gestation of pregnancy; O99.824 Streptococcus B carrier state complicating childbirth; O36.8330 Maternal care for abnormalities of the fetal heart rate or rhythm, third trimester, not applicable or unspecified; O69.81X0 Labor and delivery complicated by cord around neck, without compression, not applicable or unspecified
CPT/HCPCS: 36415; 85014; 85018; 85025; 86592; 86703; 86850; 86900; 86901; A9270; G0432; J0290; J2590; J2795; J7120